=== PATIENT | male | born 1970 | race Caucasian/White ===

== ENCOUNTER 2017-03-28 09:53 | Observation (INO) ==
[2017-03-28] MEDS ORDERED: *HR* HYDROcodone/Acet 5/325 mg TABLET PO ONE (12:28)
--- NOTE | 2017-03-28 13:26 | Orthopedic History & Physical ---
Date of Encounter: 03/28/17 Time of Encounter: 09:00 Assessment and Plan (1) Uncontrolled diabetes mellitus Current visit: Yes Status: Acute Hospitalist has been consulted for management. The wounds will likely not heal until his glucose is better controlled. Qualifiers: Diabetes mellitus type: type 2 Qualified Code(s): E11.65 - Type 2 diabetes mellitus with hyperglycemia (2) Abscess of right hand Current visit: Yes Status: Acute Plan for right hand I&D today by Dr. Metzger. Discussed the procedure as well as r /b/a with the patient while in the office, all questions answered, consent obtained. Dry gauze dressings to right hand. NPO until surgery Will start ceftriaxone IV History of Present Illness Chief complaint: Right hand pain HPI: Mr. Dudley is a 46 year old male who I saw in [facility] office this am for postoperative follow up/wound check and was then sent to ER for admission. Initially he had a piece of metal puncture through the palm of his right hand 2 months ago. The wound was initially debrided at an outside hospital. He subsequently developed a superficial flexor tenosynovitis of the right long finger and underwent second I&D procedure. His infection persisted and was hospitalized at [place]. He then underwent a 3rd debridement on on 03/06/[address] Metzger. Cultures from that surgery grew proteus mirabilis. He has been on augmentin just finished 2 days ago. Incisions continue to have drainage and worsening redness, increased pain, stiffness and numbness to hand. Denies any chest pain, SOB, fevers at this time. Patient does have uncontrolled diabetes with glucose levels running 500-700 range. Past Med Surg Social Fam HX - Past Medical History Medical history: diabetes, hypertension, myocardial infarction Psychiatric history: no psych history - Past Surgical History Surgical History: orthopedic, other - Social History Smoking Status: Current every day smoker Packs per day: 0.25 Smokeless Tobacco Status: No Alcohol use: none Drug use: none - Family History Mother History Unknown: Yes Brother Hx Family Cardiac Disorders: Yes (HTN) Medications and Allergies Metoprolol [Lopressor] 25 mg PO DAILY 04/25/16 [History] Insulin DETEMIR [Levemir] 25 unit SQ HS 12/02/16 [History] Gabapentin [Neurontin] 800 mg PO QID 01/10/17 [History] Insulin ASPART [NovoLOG] 0 unit SQ TID PRN 03/28/17 [History] 3 Allergy/AdvReac Type Severity Reaction Status Date / Time No Known Allergies Allergy Verified 03/28/17 13:53 All Systems Reviewed: A 10-system review of systems was performed and is negative for pertinent findings except as documented above in the HPI. - Constitutional Constitutional: as per HPI - Cardiovascular Cardiovascular: as per HPI - Respiratory Respiratory: as per HPI - Musculoskeletal Musculoskeletal: as per HPI Physical Exam - Constitutional Vitals: Temp Pulse Resp BP Pulse Ox 97.4 F L 86 16 146/89 98 03/28/17 11:33 03/28/17 11:33 03/28/17 11:33 03/28/17 11:33 03/28/17 11:33 - Wrist & Hand right Location of pain: palmar hand (Continued open incision to palm and volar 3rd MCP flexion crease with purulent drainage and surrounding erythema and swelling. Significant tenderness to palpation, restricted motion of all digits and MCPJ. brisk cap refill, NV intact) Results - Labs Result Diagrams: 03/28/17 15:40 03/28/17 15:40 Labs: Abnormal lab results POC Glucose 594 (58-89) H* 03/28/17 11:37 All other labs normal. - Attending Attestation Case and plan of care discussed with supervising physician who was available for all aspects of care.
[2017-03-28] MEDS ORDERED: *HR* OxyCODONE/APAP 5/325 TABLET PO PRN ×2 (13:38→20:42)
[2017-03-28] MEDS ORDERED: cefTRIAXone 2,000 MG in Water for inj. (sterile) 20 ML IVP SCH (14:00)
[2017-03-28] MEDS ORDERED: *HR* Dextrose 50 % in Water (Syg) 50 ML SYRINGE IVP PRN (15:23)
[2017-03-28] MEDS ORDERED: D5% in Water 1,000 ML IVC PRN (15:23)
[2017-03-28] MEDS ORDERED: Dextrose Gel 15 GM/37.5 ML TUBE PO PRN ×2 (15:23)
--- NOTE | 2017-03-28 15:31 | Internal Medicine Consult Note ---
Date of Encounter: 03/28/17 Time of Encounter: 14:30 - Assessment and Plan (1) Abscess of right hand Current Visit: Yes Status: Acute Assessment and plan: concerned for tenosynovitis Scheduled for I & D today by Dr. Metzger Reviewed wound cx from past showed Proteus - susceeptible to Rocephin will cont Rocephin.. also add Vancomycin.. until we get further wound cx results now check ESR, CRP, CBC, BMP , PT and INR I wanted to thank Dr. Metzger for allowing us to participate in your pt's care (2) Non-healing surgical wound Current Visit: Yes Status: Acute Qualifiers: Qualified Code(s): T81.89XA - Other complications of procedures, not elsewhere classified, initial encounter (3) Uncontrolled diabetes mellitus Current Visit: Yes Status: Acute Assessment and plan: will check Hb A1C Will start him on ISS medium + Levemir 25 U QHS Qualifiers: Diabetes mellitus type: type 2 Qualified Code(s): E11.65 - Type 2 diabetes mellitus with hyperglycemia (4) HTN (hypertension) Current Visit: Yes Status: Acute Assessment and plan: resumed home med Metoprolol Qualifiers: Hypertension type: essential hypertension Qualified Code(s): I10 - Essential (primary) hypertension (5) CAD (coronary artery disease) Current Visit: Yes Status: Chronic Assessment and plan: s/p CABG and PCI cont home med ASA + Metoprolol he is not on any statins will check Lipid panel in am Qualifiers: Coronary Disease-Associated Artery/Lesion type: [place] artery Qualified Code(s): I25.10 - Atherosclerotic heart disease of [place] coronary artery without angina pectoris Internal Medicine - CN: HPI - Data of Consult Patient: new to practice Requesting Physician: Konrad Metzger MD - Consult Narrative History of present illness: Mr. Dudley is a 46 year old male with known PMH of DM2, HTN, CAD s/p PCI and CABG x 3 vessel , who has punctured wound with metal in Rt hand 3 months ago, which initially debrided a another hospital. He subsequently developed superficial flexor tenosynoivtis of Rt long finger and underwent second I & D at [place]. His wound still not healing well, so he did go for 3rd I & D of Rt hand by Ortho / Hand Surgeon Dr. Metzger on 03/06/17. His wound cx grew Proteus at that time and he was placed on Augmentin abx. However his hand wound still looks infected with purulent drainage and erythema through the incisions. We were asked to manage his DM and HTN. He denied any CP / SOB. Since he is not feeling well from last couple of days, he did not insulin as scheduled. Past Med Surg Social Fam HX - Past Medical History Medical history: diabetes, hypertension, myocardial infarction Psychiatric history: no psych history - Past Surgical History Surgical History: coronary bypass (CABG), orthopedic, other - Social History Smoking Status: Current every day smoker Packs per day: 0.25 Smokeless Tobacco Status: No Alcohol use: none Drug use: none - Family History Mother History Unknown: Yes Brother Hx Family Cardiac Disorders: Yes (HTN) Review of systems: All the systems are reviewed everything is benign except the systems and symptoms I mentioned in the history of present illness Internal Medicine - CN: Meds Metoprolol [Lopressor] 25 mg PO DAILY 04/25/16 [History] Insulin DETEMIR [Levemir] 25 unit SQ HS 12/02/16 [History] Gabapentin [Neurontin] 800 mg PO QID 01/10/17 [History] Insulin ASPART [NovoLOG] 0 unit SQ TID PRN 03/28/17 [History] 3 Allergy/AdvReac Type Severity Reaction Status Date / Time No Known Allergies Allergy Verified 03/28/17 13:53 Internal Medicine - CN: Exam - Constitutional Vitals: Temp Pulse Resp BP Pulse Ox 98.4 F 88 15 129/81 96 03/28/17 15:13 03/28/17 15:13 03/28/17 15:13 03/28/17 15:13 03/28/17 15:13 General appearance IM: Present: A&O X 3, no acute distress, answers questions appropriately - Head Head exam: Present: atraumatic, normal inspection - Neck Neck exam general surgery: Present: full ROM, supple. Absent: lymphadenopathy, tenderness - Respiratory Respiratory exam: Present: decreased breath sounds. Absent: rales, respiratory distress, rhonchi, wheezes - Cardiovascular Cardiovascular exam IM: Present: RRR, +S1, +S2. Absent: systolic murmur, tachycardia - GI/Abdominal GI/Abdominal exam IM: Present: normal bowel sounds, soft. Absent: rebound, rigid, tenderness - Extremities Exam Extremities exam IM: Absent: calf tenderness, pedal edema, tenderness Additional comments: abscess, purulent drainage and erythema noticed over Rt hand plantar incision area. swollen fingers noticed over Rt hand - Back Exam Back exam: Absent: CVA tenderness (L), CVA tenderness (R) - Neurological Exam Neurological exam: Present: alert, oriented X3 - Psychiatric Psychiatric exam: Present: normal affect, normal mood - Skin Skin exam IM: Absent: rash Consult Discharge Plan - Plan Referrals: NONE,PCP [Primary Care Provider] -
[2017-03-28 15:56] LABS: INR 1.1; Prothrombin Time 11.5 Seconds (9.4-12.1)
[2017-03-28] MEDS ORDERED: Vancomycin 1,250 MG in D5% in Water 250 ML IVPB SCH (16:00)
[2017-03-28 16:06] LABS: Basophils # 0.2 K/mcL (0.0-0.2); Basophils % 1.4 %; Eosinophils # 0.3 K/mcL (0.0-0.6); Eosinophils % 2.8 %; Hematocrit 45.3 % (37.5-50.1); Hemoglobin 16.7 g/dL (12.9-16.9); Immature Granulocytes % 2.5 % (0-4); Lymphocytes # 2.5 K/mcL (0.6-4.6); Lymphocytes % 21.8 %; Mean Corpuscular HGB Conc 36.9 g/dL (31.6-35.5); Mean Corpuscular Hemoglobin 32.1 pg (28.0-33.3); Mean Corpuscular Volume 86.9 fL (83.0-100.0); Mean Platelet Volume 9.7 fL (9.4-12.4); Monocytes % 8.8 %; Neutrophils # 7.1 K/mcL (1.6-8.9); Platelet Count 232 K/mcL (140-400); Red Blood Count 5.21 M/mcL (4.19-5.50); Red Cell Distribution Width 12.7 % (11.5-14.5); Segmented Neutrophils % 62.7 %
[2017-03-28 16:18] LABS: BUN/Creatinine Ratio 13 (6-26); Blood Urea Nitrogen 9 mg/dL (6-20); C-Reactive Protein 58 mg/L (Less than 10); Carbon Dioxide 33 mEq/L (23-29); Chloride 91 mEq/L (98-107); Glucose 361 mg/dL (70-105); Osmolality,Calculated 287 (280-300); Potassium 3.2 mEq/L (3.5-5.1); Sodium 132 mEq/L (136-145); eGFR For African Americans > 60 (> 60); eGFR For Non-African Americans > 60 (> 60)
[2017-03-28] MEDS: Gabapentin 400 MG CAPSULE PO SCH ×2 (16:24→20:21)
[2017-03-28] MEDS ORDERED: Insulin LISPRO 300 UNITS/3 ML VIAL SQ SCH ×2 (16:30→21:00)
--- NOTE | 2017-03-28 16:45 | Anesthesia Evaluation PreOp ---
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 Other Medical History: Diabetes Type II (insulin-dependent diabetes mellitus - poorly controlled) Anesthesia History: No Prior Anesthetic Complications Alcohol Use: none Drug use: none Medications and Allergies Metoprolol [Lopressor] 25 mg PO DAILY 04/25/16 [History] Insulin DETEMIR [Levemir] 25 unit SQ HS 12/02/16 [History] Gabapentin [Neurontin] 800 mg PO QID 01/10/17 [History] Insulin ASPART [NovoLOG] 0 unit SQ TID PRN 03/28/17 [History] 3 Allergy/AdvReac Type Severity Reaction Status Date / Time No Known Allergies Allergy Verified 03/28/17 13:53 - Meds/Allergy Pre-op Review Medications Reviewed: Yes Allergies Reviewed: Yes Beta Blockers on Current Med List: Yes If Beta Blockers taken, Date/Time (Last Dose taken): 03-28-17 metoprolol 6 am Anesthesia Results - Labs 03/28/17 15:40 03/28/17 15:40 - Imaging EKG: report reviewed, image reviewed (SINUS RHYTHM POSSIBLE LEFT ATRIAL ENLARGEMENT) Anesthesia Exam Last Vital Signs Temp 98.4 F 03/28/17 15:13 Pulse 88 03/28/17 15:13 Resp 15 03/28/17 15:13 BP 129/81 03/28/17 15:13 Pulse Ox 96 03/28/17 15:13 Weight: 85 kg NPO (# of Hours): > 8 hrs - HEENT Pupil (Motor): Pupils equal, EOMI Mallampati: II Teeth: Edentulous Oral Opening: Greater than 3 - DOOR FURRING INSTALLER LOC: Oriented DOOR FURRING INSTALLER Motor: Normal RUE, Normal LUE, Normal RLE, Normal LLE, Normal Face - Cardiac Rhythm: Regular Murmur: None - Pulmonary Breath Sounds: bilateral Clear Respiratory Effort: Symmetrical Anesthesia Assess/Plan ASA Score: 3 Modified Melania Scale for Level of Consciousness: Cooperative, oriented, and tranquil Anesthetic Plan: General Monitoring Plan: Standard Monitors Recovery Plan: PACU
[2017-03-28] MEDS ORDERED: Ondansetron 4 MG/2 ML VIAL ONE (16:50)
[2017-03-28] MEDS ORDERED: *HR* Propofol 200 MG/20 ML VIAL IVP ONE (16:50)
[2017-03-28] MEDS ORDERED: *HR* FentaNYL (PF) 100 MCG/2 ML VIAL ONE (16:50)
[2017-03-28] MEDS ORDERED: *HR* Midazolam HCl 2 MG/2 ML VIAL ONE (16:50)
[2017-03-28] MEDS ORDERED: Lidocaine -MPF 2% 2 ML VIAL ONE (16:50)
[2017-03-28] MEDS ORDERED: Dexamethasone 4 MG/ML VIAL ONE (16:50)
[2017-03-28] MEDS ORDERED: Ondansetron 4 MG/2 ML VIAL IVP ONE (17:31)
[2017-03-28] MEDS ORDERED: Albuterol 2.5 MG/3 ML NEBULIZER IH ONE (17:31)
[2017-03-28] MEDS ORDERED: Naloxone 0.4 MG/ML INJ IVP PRN (17:31)
[2017-03-28] MEDS ORDERED: *HR* Labetalol 20 MG/4 ML SYRINGE IVP PRN (17:31)
[2017-03-28] MEDS ORDERED: *HR* HYDROmorphone 2 MG/ML SYRINGE ONE (17:39)
[2017-03-28] MEDS ORDERED: Ringers Solution, Lactated 1,000 ML IVC SCH (17:45)
[2017-03-28] MEDS: *HR* HYDROmorphone (PF) 1 MG/ML SYRINGE IVP PRN ×4 (18:28→18:50)
--- NOTE | 2017-03-28 18:56 | Anesthesia Evaluation Post Op ---
Date of Encounter: 03/28/17 Time of Encounter: 18:55 - Vital Signs Vital Signs: Last Vital Signs Temp 97.5 F L 03/28/17 18:41 Pulse 93 03/28/17 18:41 Resp 14 03/28/17 18:41 BP 158/91 03/28/17 18:41 Pulse Ox 97 03/28/17 18:41 - Lungs Lungs: Clear Ascult./Percussion - Airway Airway: Non-obstructed - Cardiovascular Regular Rate - Mental Status Mental Status: Alert & Oriented, Answers Appropriately - Pain Pain Scale: 4 - Nausea Vomiting Nausea Vomiting: Not Present - Hydration Hydration: NPO - Discharge PostOp Status: Transfer Patient to floor
--- NOTE | 2017-03-28 19:25 | Operative Note ---
Date of procedure: 03/28/17 Pre-op diagnosis: Right hand palmar abscess and long finger flexor tendon sheath abscess Post-op diagnosis: other (Right hand palmar abscess and long finger flexor tendon sheath abscess. Partial rupture of the long finger FDS tendon) Procedure: Right hand incision and drainage of long finger flexor tendon sheath abscess extending to carpal tunnel Right hand excision of partial ruptured flexor digitorum was shells tendon of the long finger Anesthesia: GETA Surgeon: Konrad Metzger Was there an employment assistant present: No Estimated blood loss (cc): 10 Tourniquet Time (Minutes): 11 Specimen: Sent to pathology and microbiology Condition: stable Disposition: PACU Procedure in Detail: Indications: Patient is a 46-year-old gentleman whose head multiple incision and drainages of his right hand including long finger flexor tendon sheath. The patient was last operated on by myself 3 weeks ago. He presented in the office today with recurrence of infection. His diabetes still remains very uncontrolled. He was admitted today for repeat incision and drainage, IV antibiotics, and management of his diabetes. Procedure: The patient was brought into the operating room and placed on the OR table in supine position with the affected extremity on a hand table. A sign in was performed. The patient underwent monitored anesthesia care. A tourniquet was placed on the right arm close to the axilla. The patient underwent general anesthesia. The extremity was then prepped and draped in usual sterile fashion. A timeout was performed. The patient had pus draining from the partially open woundin the mid palm of the hand. Also pus draining from distal and open carpal tunnel incision. Also in the wound with draining pus at the long finger MP flexion crease. The skin at the distal palm of this long finger with very red and angry appearing. The draining wound bluntly spread the hemostat, the purulent fluid expressed was cultured for aerobic and anaerobic. The patient was then given 2 g of Ancef intravenously. The wounds were copiously with normal saline. The right upper extremity was elevated, exsanguinated with an Tariq wrap, and the tourniquet was raised to pressure of 250 mmHg. The mid palm incision was extended proximally in line with the first webspace. I sharply incised through the deep palmar fascia. The carpal tunnel was also reopened. The deep arch was noted once again, which appeared somewhat sclerosed. Also made a 1.5 cm oblique incision across the right long finger MP flexion crease where it was open already with pus draining. The wound will cultured with normal saline and sharp debridement of any granulation and infected tissue. Going into the carpal tunnel, the flexor tendons were bluntly spread and irrigated. Coming the distal palmar wound, aspirated and irrigated until the flexor tendons with A1 amanda was previously released. On exploration under the long finger MP flexion crease, the distal end of the A2 amanda was missing and there appeared to be necrotic tendon. The tendon was pulled on and was partially ruptured, at least 90% flexion. This was a flexor digitorum shows tendon. This infected necrotic tendon was excised the flexor digitorum profundus tendon was completely intact. Using a 14-gauge Angiocath, I irrigated out under the flexor tendon sheath well. The tourniquet was inflated and continued to irrigate the wound out copiously with normal saline. Hemostasis obtained with bipolar cautery. The skin incisions were closed with 4 nylon mattress and simple sutures. A 1 cm opening was left in the distal palm and also mid palm, and also at the MP flexion crease. Both open areas were packed with iodoform packing. The patient was injected with a total of 10 mL of 0.5% Marcaine. Sterile dressings were applied. The patient was extubated and taken to the recovery room in stable condition.
--- NOTE | 2017-03-28 19:47 | Discharge Summary ---
<Konrad Metzger - Last Filed: 03/28/17 19:45> Date of Encounter: 03/28/17 Time of Encounter: 19:45 - Discharge Diagnosis (1) Abscess of right hand Status: Acute - Discharge Medications Prescriptions: cephALEXin [Keflex] 500 mg PO QID #40 capsule OxyCODONE/APAP 5/325 [Percocet 5/325 MG] 1 each PO Q6HR PRN #28 tablet PRN Reason: Pain OxyCODONE/APAP 5/325 [Percocet 5/325 MG] 1 each PO Q6HR PRN #28 tablet PRN Reason: Pain Home Medications: Metoprolol [Lopressor] 25 mg PO DAILY 04/25/16 [History] Insulin DETEMIR [Levemir] 25 unit SQ HS 12/02/16 [History] Gabapentin [Neurontin] 800 mg PO QID 01/10/17 [History] Insulin ASPART [NovoLOG] 0 unit SQ TID PRN 03/28/17 [History] OxyCODONE/APAP 5/325 [Percocet 5/325 MG] 1 each PO Q6HR PRN #28 tablet 03/28/17 [Rx] OxyCODONE/APAP 5/325 [Percocet 5/325 MG] 1 each PO Q6HR PRN #28 tablet 03/28/17 [Rx] cephALEXin [Keflex] 500 mg PO QID #40 capsule 03/30/17 [Rx] Allergies/Adverse Reactions: 3 Allergy/AdvReac Type Severity Reaction Status Date / Time No Known Allergies Allergy Verified 03/28/17 13:53 Labs on day of discharge: Labs from last 24 hours 03/28/17 03/28/17 03/28/17 15:40 15:40 15:40 WBC RBC Hgb Hct MCV MCH MCHC RDW Plt Count MPV Immature Gran % Seg Neutrophils % Lymphocytes % Monocytes % Eosinophils % Basophils % Neutrophils # Lymphocytes # Monocytes # Eosinophils # Basophils # ESR PT 11.5 INR 1.1 Sodium 132 L Potassium 3.2 L Chloride 91 L Carbon Dioxide 33 H BUN 9 Creatinine 0.72 Est GFR ( Amer) > 60 Est GFR (Non-Af Amer) > 60 BUN/Creatinine Ratio 13 Glucose 361 H POC Glucose Est Mean Plasma Glucose 298 Hemoglobin A1c 12.0 H Calculated Osmolality 287 Calcium 10.0 Magnesium 2.0 C-Reactive Protein 58 H 03/28/17 03/28/17 03/28/17 15:40 15:40 15:21 WBC 11.3 H RBC 5.21 Hgb 16.7 Hct 45.3 MCV 86.9 MCH 32.1 MCHC 36.9 H RDW 12.7 Plt Count 232 MPV 9.7 Immature Gran % 2.5 Seg Neutrophils % 62.7 Lymphocytes % 21.8 Monocytes % 8.8 Eosinophils % 2.8 Basophils % 1.4 Neutrophils # 7.1 Lymphocytes # 2.5 Monocytes # 1.0 Eosinophils # 0.3 Basophils # 0.2 ESR 74 H PT INR Sodium Potassium Chloride Carbon Dioxide BUN Creatinine Est GFR ( Amer) Est GFR (Non-Af Amer) BUN/Creatinine Ratio Glucose POC Glucose 353 H Est Mean Plasma Glucose Hemoglobin A1c Calculated Osmolality Calcium Magnesium C-Reactive Protein 03/28/17 03/28/17 11:37 11:34 WBC RBC Hgb Hct MCV MCH MCHC RDW Plt Count MPV Immature Gran % Seg Neutrophils % Lymphocytes % Monocytes % Eosinophils % Basophils % Neutrophils # Lymphocytes # Monocytes # Eosinophils # Basophils # ESR PT INR Sodium Potassium Chloride Carbon Dioxide BUN Creatinine Est GFR ( Amer) Est GFR (Non-Af Amer) BUN/Creatinine Ratio Glucose POC Glucose 594 H* 509 H* Est Mean Plasma Glucose Hemoglobin A1c Calculated Osmolality Calcium Magnesium C-Reactive Protein Date of admission: 03/28/17 11:09 Primary care physician: PCP NONE Consults: 03/28/17 12:35 Consult to Hospitalist [CONS] Stat Consulting Provider: Hospitalist Bhavna Reason for Consult: uncontrolled DM; preop (OR 03/28/17) - call completed from office per Guido Moe Call Completed: Yes 03/28/17 14:29 Consult to Invasive Line Access Team [CONS] Routine Reason for Consult: long-term IVAB Line Type: EPIV Anticipated date of discharge: 03/30/17 - Patient Status Disposition: Home, Self-Care Condition: Good Functional capacity at discharge: independent ambulation Overall status at discharge: patient is progressing back to baseline - Discharge Instructions Follow Up With: NONE,PCP [Primary Care Provider] - - Hospital Course Hospital course: Mr. Dudley is a 46 year old male - Time Spent with Patient Total time spent providing and/or coordinating discharge services: <Tadeo Martin - Last Filed: 03/31/17 07:12> Date of Encounter: 03/31/17 Labs on day of discharge: Labs from last 24 hours 03/31/17 03/31/17 03/31/17 02:55 02:55 02:55 WBC 7.3 RBC 4.14 L Hgb 13.2 D Hct 37.5 MCV 90.6 MCH 31.9 MCHC 35.2 RDW 12.7 Plt Count 209 MPV 9.5 Immature Gran % 2.3 Seg Neutrophils % 58.3 Lymphocytes % 25.8 Monocytes % 9.7 Eosinophils % 2.7 Basophils % 1.2 Neutrophils # 4.2 Lymphocytes # 1.9 Monocytes # 0.7 Eosinophils # 0.2 Basophils # 0.1 ESR 46 H Sodium 136 Potassium 3.2 L Chloride 98 Carbon Dioxide 32 H BUN 7 Creatinine 0.69 L Est GFR ( Amer) > 60 Est GFR (Non-Af Amer) > 60 BUN/Creatinine Ratio 10 Glucose 348 H POC Glucose Calculated Osmolality 294 Calcium 8.7 Magnesium 1.8 C-Reactive Protein 25 H 03/30/17 03/30/17 03/30/17 22:12 17:08 15:52 WBC RBC Hgb Hct MCV MCH MCHC RDW Plt Count MPV Immature Gran % Seg Neutrophils % Lymphocytes % Monocytes % Eosinophils % Basophils % Neutrophils # Lymphocytes # Monocytes # Eosinophils # Basophils # ESR Sodium Potassium Chloride Carbon Dioxide BUN Creatinine Est GFR ( Amer) Est GFR (Non-Af Amer) BUN/Creatinine Ratio Glucose POC Glucose 173 H 107 H 119 H Calculated Osmolality Calcium Magnesium C-Reactive Protein 03/30/17 11:41 WBC RBC Hgb Hct MCV MCH MCHC RDW Plt Count MPV Immature Gran % Seg Neutrophils % Lymphocytes % Monocytes % Eosinophils % Basophils % Neutrophils # Lymphocytes # Monocytes # Eosinophils # Basophils # ESR Sodium Potassium Chloride Carbon Dioxide BUN Creatinine Est GFR ( Amer) Est GFR (Non-Af Amer) BUN/Creatinine Ratio Glucose POC Glucose 277 H Calculated Osmolality Calcium Magnesium C-Reactive Protein Preliminary micro results at discharge 03/28/17 18:22 Anaerobic Culture - Preliminary Right Hand At this time, no anaerobic growth is present. The culture will be finalized after 5 days of incubation. Date of admission: 03/28/17 11:09 Primary care physician: PCP NONE Consults: 03/28/17 14:29 Consult to Invasive Line Access Team [CONS] Routine Reason for Consult: long-term IVAB Line Type: EPIV - Hospital Course Hospital course: Mr. Dudley is a 46 year old male - Time Spent with Patient Total time spent providing and/or coordinating discharge services:
[2017-03-28] MEDS: Vancomycin 1,250 MG in D5% in Water 250 ML IVPB SCH (20:01)
[2017-03-28] MEDS ORDERED: *HR* Morphine 2 MG/ML SYRINGE IVP PRN (20:41)
[2017-03-28] MEDS ORDERED: Insulin DETEMIR 100 UNIT/ML X5UNITS SQ SCH (21:00)
[2017-03-29 06:14] LABS: BUN/Creatinine Ratio 17 (6-26); Blood Urea Nitrogen 12 mg/dL (6-20); Calcium 9.4 mg/dL (8.6-10.3); Carbon Dioxide 29 mEq/L (23-29); Chloride 97 mEq/L (98-107); Chol/HDL Ratio 7.3 (0-4.9); Cholesterol 176 mg/dL (< 200); Glucose 313 mg/dL (70-105); HDL Cholesterol 24 mg/dL (40-59); LDL Cholesterol,Calculated 108 mg/dL (0-99); Osmolality,Calculated 292 (280-300); Potassium 3.7 mEq/L (3.5-5.1); Sodium 135 mEq/L (136-145); Triglycerides 221 mg/dL (< 150); eGFR For African Americans > 60 (> 60); eGFR For Non-African Americans > 60 (> 60)
[2017-03-29] MEDS: Vancomycin 1,250 MG in D5% in Water 250 ML IVPB SCH ×2 (06:53→18:32)
[2017-03-29] MEDS ORDERED: *HR* Labetalol 20 MG/4 ML SYRINGE IVP PRN (07:10)
[2017-03-29] MEDS ORDERED: Naloxone 0.4 MG/ML INJ IVP PRN (07:10)
[2017-03-29] MEDS ORDERED: *HR* Dextrose 50 % in Water (Syg) 50 ML SYRINGE IVP PRN (07:10)
[2017-03-29] MEDS ORDERED: D5% in Water 1,000 ML IVC PRN (07:10)
[2017-03-29] MEDS ORDERED: Ondansetron 4 MG/2 ML VIAL IVP ONE (07:10)
[2017-03-29] MEDS ORDERED: Dextrose Gel 15 GM/37.5 ML TUBE PO PRN ×2 (07:10)
[2017-03-29] MEDS ORDERED: *HR* HYDROmorphone (PF) 1 MG/ML SYRINGE IVP PRN (07:10)
[2017-03-29] MEDS: Insulin LISPRO 300 UNITS/3 ML VIAL SQ SCH ×3 (08:06→17:09)
[2017-03-29] MEDS: Gabapentin 400 MG CAPSULE PO SCH ×4 (08:06→22:05)
[2017-03-29] MEDS: Ringers Solution, Lactated 1,000 ML IVC SCH (08:07)
--- NOTE | 2017-03-29 08:08 | Orthopedics Progress Note ---
Date of Encounter: 03/29/17 Time of Encounter: 08:07 Subjective Interval history: Patient was seen this morning doing well without complaints. Afebrile vital signs stable. Operative extremity: Neurovascularly intact Dressing clean dry and intact Calves nontender Assessment and plan: Continue with postoperative care Cultures pending Objective Vital signs: Vital Signs Temp Pulse Resp BP Pulse Ox 03/29/17 06:55 98.5 F 97 16 134/83 99 03/29/17 04:14 98.3 F 95 18 139/87 97 03/28/17 23:35 98.4 F 100 17 135/64 94 03/28/17 20:45 98.2 F 100 16 133/87 96 03/28/17 20:33 96 03/28/17 20:15 98.2 F 96 16 133/87 94 03/28/17 19:25 99.0 F 96 16 135/90 95 03/28/17 19:01 98.2 F 90 14 142/87 96 03/28/17 18:51 92 14 145/92 95 03/28/17 18:41 97.5 F L 93 14 158/91 97 03/28/17 18:31 96 14 151/93 94 03/28/17 18:21 96 12 132/87 94 03/28/17 18:11 97.3 F L 99 16 117/82 96 03/28/17 15:13 98.4 F 88 15 129/81 96 03/28/17 11:33 97.4 F L 86 16 146/89 98 Intake and Output 03/28/17 03/29/17 03/29/17 23:59 07:59 15:59 Intake Total 850 / 850 Output Total Balance 840 / 840 Intake: IV Fluids 250 / 250 Vancocin 1,250 MG In Dextrose 5 250 / 250 % 250 ML @ 166.67 mls/hr IVPB Q12H [facility] Rx#:[id number] Oral 600 / 600 Output: Urine 0 / 0 Estimated Blood Loss Other: # Voids 2 Blood Glucose* 356 319 - Labs CBC & BMP: 03/28/17 15:40 03/29/17 05:45 Labs: Abnormal lab results WBC 11.3 K/mcL (4.3-11.1) H 03/28/17 15:40 MCHC 36.9 g/dL (31.6-35.5) H 03/28/17 15:40 ESR 74 mm/hr (0-10) H 03/28/17 15:40 Sodium 135 mEq/L (136-145) L 03/29/17 05:45 Chloride 97 mEq/L (98-107) L 03/29/17 05:45 Glucose 313 mg/dL (70-105) H 03/29/17 05:45 POC Glucose 356 (58-89) H 03/28/17 20:44 Hemoglobin A1c 12.0 % (-5.6) H 03/28/17 15:40 C-Reactive Protein 58 mg/L (Less than 10) H 03/28/17 15:40 Triglycerides 221 mg/dL (< 150) H 03/29/17 05:45 LDL Cholesterol, Calc 108 mg/dL (0-99) H 03/29/17 05:45 VLDL Cholesterol, Calc 44 mg/dL (< 31) H 03/29/17 05:45 HDL Cholesterol 24 mg/dL (40-59) L 03/29/17 05:45 Cholesterol/HDL Ratio 7.3 (0-4.9) H 03/29/17 05:45 - VTE Documentation of Mechanical Device: Intermittent pneumatic compression device Consult Discharge Plan - Plan Referrals: NONE,PCP [Primary Care Provider] - Prescriptions: OxyCODONE/APAP 5/325 [Percocet 5/325 MG] 1 each PO Q6HR PRN #28 tablet PRN Reason: Pain OxyCODONE/APAP 5/325 [Percocet 5/325 MG] 1 each PO Q6HR PRN #28 tablet PRN Reason: Pain
[2017-03-29] MEDS: *HR* OxyCODONE/APAP 5/325 TABLET PO PRN ×2 (11:19→19:47)
[2017-03-29] MEDS: *HR* Morphine 2 MG/ML SYRINGE IVP PRN ×3 (13:06→22:10)
[2017-03-29] MEDS: cefTRIAXone 2,000 MG in Water for inj. (sterile) 20 ML 20 ML IVP SCH (13:07)
--- NOTE | 2017-03-29 15:10 | Internal Med Progress Note ---
Date of Encounter: 03/29/17 Time of Encounter: 14:50 - Assessment and plan (1) Abscess of right hand Current Visit: Yes Status: Acute Assessment and plan: s/p Right hand incision and drainage of long finger flexor tendon sheath abscess extending to carpal tunnel s/p Right hand excision of partial ruptured flexor digitorum was shells tendon of the long finger POD # 1 Ortho following Wound cx still pending EPV line placed in Cont Rocephin + Vancomycin May need to go home on IV Abx for at least 2 weeks, since he has recurrent infection will talk to Ortho about this (2) Non-healing surgical wound Current Visit: Yes Status: Acute Qualifiers: Qualified Code(s): T81.89XA - Other complications of procedures, not elsewhere classified, initial encounter (3) Uncontrolled diabetes mellitus Current Visit: Yes Status: Acute Assessment and plan: HbA1C 12 His BS are still not well controlled Changed his Levemir to 30 U BID also inc ISS to high He does need to go home on ISS Qualifiers: Diabetes mellitus type: type 2 Qualified Code(s): E11.65 - Type 2 diabetes mellitus with hyperglycemia (4) HTN (hypertension) Current Visit: Yes Status: Acute Assessment and plan: stable with home med Metoprolol Qualifiers: Hypertension type: essential hypertension Qualified Code(s): I10 - Essential (primary) hypertension (5) CAD (coronary artery disease) Current Visit: Yes Status: Chronic Assessment and plan: s/p CABG and PCI cont home med ASA + Metoprolol His LDL -108, HDL -24 will start him on Lipitor 20mg QHS Qualifiers: Coronary Disease-Associated Artery/Lesion type: [place] artery Qualified Code(s): I25.10 - Atherosclerotic heart disease of [place] coronary artery without angina pectoris - Subjective Interval history: Mr. Dudley is a 46 year old male with known PMH of DM2, HTN, CAD s/p PCI and CABG x 3 vessel , who has punctured wound with metal in Rt hand 3 months ago, which initially debrided a another hospital. He subsequently developed superficial flexor tenosynoivtis of Rt long finger and underwent second I & D at [place]. His wound still not healing well, so he did go for 3rd I & D of Rt hand by Ortho / Hand Surgeon Dr. Metzger on 03/06/17. His wound cx grew Proteus at that time and he was placed on Augmentin abx. However his hand wound still looks infected with purulent drainage and erythema through the incisions. He did go to OR 03/28/17. He denied any CP / SOB. Denied any fever / chills. Tolerating PO intake well. - Constitutional Vitals: Temp Pulse Resp BP Pulse Ox 97.8 F 100 16 140/77 99 03/29/17 11:25 03/29/17 11:25 03/29/17 11:25 03/29/17 11:25 03/29/17 11:25 General appearance: Present: A&O X 3, no acute distress, answers questions appropriately - Head Head exam: Present: atraumatic, normal inspection - Neck Neck exam general surgery: Present: supple - Respiratory Respiratory exam: Present: decreased breath sounds, wheezes. Absent: rales, respiratory distress, rhonchi - Cardiovascular Cardiovascular exam: Present: RRR, +S1, +S2. Absent: diastolic murmur, gallop, rubs, systolic murmur - GI/Abdominal GI/Abdominal exam: Present: normal bowel sounds, soft. Absent: rebound, rigid, tenderness - Extremities Exam Extremities exam: Absent: calf tenderness, pedal edema, tenderness Additional comments: improving swelling in Rt hand.. dressing placed on...able to move his Rt hand fingers - Back Exam Back exam: Absent: CVA tenderness (L), CVA tenderness (R) - Neurological Exam Neurological exam: Present: alert, oriented X3 - Psychiatric Psychiatric exam: Present: normal affect, normal mood Internal Medicine: Result - Labs CBC & Chem 7: 03/28/17 15:40 03/29/17 05:45 Labs: Short CBC 03/28/17 Range/Units 15:40 WBC 11.3 H (4.3-11.1) K/mcL Hgb 16.7 (12.9-16.9) g/dL Hct 45.3 (37.5-50.1) % Plt Count 232 (140-400) K/mcL Neutrophils # 7.1 (1.6-8.9) K/mcL BMP 03/28/17 03/29/17 15:40 05:45 Sodium 132 L 135 L Potassium 3.2 L 3.7 Chloride 91 L 97 L Carbon Dioxide 33 H 29 BUN 9 12 Creatinine 0.72 0.70 Glucose 361 H 313 H Calcium 10.0 9.4 - ABG Interpretation ABG results: PT/INR, D-dimer PT 11.5 Seconds (9.4-12.1) 03/28/17 15:40 - VTE Documentation of Mechanical Device: Intermittent pneumatic compression device Consult Discharge Plan - Plan Referrals: NONE,PCP [Primary Care Provider] - Prescriptions: OxyCODONE/APAP 5/325 [Percocet 5/325 MG] 1 each PO Q6HR PRN #28 tablet PRN Reason: Pain OxyCODONE/APAP 5/325 [Percocet 5/325 MG] 1 each PO Q6HR PRN #28 tablet PRN Reason: Pain
[2017-03-29] MEDS ORDERED: Insulin DETEMIR 100 UNIT/ML X5UNITS SQ SCH (21:00)
[2017-03-29] MEDS ORDERED: Insulin LISPRO 300 UNITS/3 ML VIAL SQ SCH ×2 (21:00)
[2017-03-29] MEDS: Insulin DETEMIR 100 UNIT/ML X5UNITS SQ SCH (22:05)
[2017-03-30] MEDS: *HR* OxyCODONE/APAP 5/325 TABLET PO PRN ×3 (01:17→10:53)
--- NOTE | 2017-03-30 07:46 | Orthopedics Progress Note ---
Date of Encounter: 03/30/17 Time of Encounter: 07:45 Subjective Interval history: Patient was seen this morning doing well without complaints. Afebrile vital signs stable. Operative extremity: Neurovascularly intact Dressing clean dry and intact Calves nontender Assessment and plan: Continue with postoperative care Cultures no growth to date, recommendation is for patient to remain in the hospital until cultures are finalized. If patient refuses to stay will be discharged on Keflex which his previous culture sensitive to and since he did not respond well to the amoxicillin. Patient will also be given a follow-up for Friday. Objective Vital signs: Vital Signs Temp Pulse Resp BP Pulse Ox 03/30/17 06:53 98.0 F 85 16 123/71 100 03/30/17 00:25 97.8 F 83 14 125/74 98 03/29/17 20:02 98.0 F 89 14 134/80 98 03/29/17 17:05 97.9 F 89 16 114/70 96 03/29/17 11:25 97.8 F 100 16 140/77 99 Intake and Output 03/29/17 03/29/17 03/30/17 15:59 23:59 07:59 Intake Total 610 / 610 1490 / 1490 Balance 20 610 / 610 1490 / 1490 Intake: IV Fluids 250 / 250 Rocephin 2,000 MG In Water for inj. (sterile) 20 ML @ 600 mls/ hr IVP Q24H [facility] Rx#:[id number] Vancocin 1,250 MG In Dextrose 5 250 / 250 % 250 ML @ 166.67 mls/hr IVPB Q12H [facility] Rx#:[id number] Oral 360 / 360 1490 / 1490 Other: # Voids 6 Blood Glucose* 349 279 - Labs CBC & BMP: 03/28/17 15:40 03/29/17 05:45 Labs: Abnormal lab results WBC 11.3 K/mcL (4.3-11.1) H 03/28/17 15:40 MCHC 36.9 g/dL (31.6-35.5) H 03/28/17 15:40 ESR 74 mm/hr (0-10) H 03/28/17 15:40 Sodium 135 mEq/L (136-145) L 03/29/17 05:45 Chloride 97 mEq/L (98-107) L 03/29/17 05:45 Glucose 313 mg/dL (70-105) H 03/29/17 05:45 POC Glucose 349 (58-89) H 03/29/17 20:47 Hemoglobin A1c 12.0 % (-5.6) H 03/28/17 15:40 C-Reactive Protein 58 mg/L (Less than 10) H 03/28/17 15:40 Triglycerides 221 mg/dL (< 150) H 03/29/17 05:45 LDL Cholesterol, Calc 108 mg/dL (0-99) H 03/29/17 05:45 VLDL Cholesterol, Calc 44 mg/dL (< 31) H 03/29/17 05:45 HDL Cholesterol 24 mg/dL (40-59) L 03/29/17 05:45 Cholesterol/HDL Ratio 7.3 (0-4.9) H 03/29/17 05:45 Vancomycin Trough 8.3 mcg/mL (10-20) L 03/30/17 06:05 - VTE Documentation of Mechanical Device: Intermittent pneumatic compression device Consult Discharge Plan - Plan Referrals: NONE,PCP [Primary Care Provider] - Prescriptions: cephALEXin [Keflex] 500 mg PO QID #40 capsule OxyCODONE/APAP 5/325 [Percocet 5/325 MG] 1 each PO Q6HR PRN #28 tablet PRN Reason: Pain OxyCODONE/APAP 5/325 [Percocet 5/325 MG] 1 each PO Q6HR PRN #28 tablet PRN Reason: Pain
[2017-03-30] MEDS: Ringers Solution, Lactated 1,000 ML IVC SCH (08:41)
[2017-03-30] MEDS: Insulin DETEMIR 100 UNIT/ML X5UNITS SQ SCH ×2 (08:49→22:21)
[2017-03-30] MEDS: Insulin LISPRO 300 UNITS/3 ML VIAL SQ SCH ×3 (08:49→17:10)
[2017-03-30] MEDS: Vancomycin 1,250 MG in D5% in Water 250 ML IVPB SCH (08:51)
[2017-03-30] MEDS: Gabapentin 400 MG CAPSULE PO SCH ×4 (08:51→20:57)
[2017-03-30] MEDS: *HR* Morphine 2 MG/ML SYRINGE IVP PRN ×3 (08:57→19:07)
[2017-03-30] MEDS ORDERED: Aminoglycoside Consult 1 EACH MC ONE (09:29)
[2017-03-30] MEDS: cefTRIAXone 2,000 MG in Water for inj. (sterile) 20 ML 20 ML IVP SCH (13:20)
[2017-03-30] MEDS ORDERED: Insulin Regular, Human 100 UNIT/ML SQ SCH ×2 (15:45→17:00)
--- NOTE | 2017-03-30 15:53 | Internal Med Progress Note ---
Date of Encounter: 03/30/17 Time of Encounter: 15:50 - Assessment and plan (1) Abscess of right hand Current Visit: Yes Status: Acute Assessment and plan: s/p Right hand incision and drainage of long finger flexor tendon sheath abscess extending to carpal tunnel s/p Right hand excision of partial ruptured flexor digitorum was shells tendon of the long finger POD # 1 Ortho following Wound cx still pending Cont Rocephin d/c Vancomycin Wound cx prelim report no growth however his Rt hand wound still looks very infected with all the purulent discharge may need another wash out...will talk to Ortho May need to go home on IV Abx for at least 2 weeks, since he has recurrent infection (2) Non-healing surgical wound Current Visit: Yes Status: Acute Qualifiers: Qualified Code(s): T81.89XA - Other complications of procedures, not elsewhere classified, initial encounter (3) Uncontrolled diabetes mellitus Current Visit: Yes Status: Acute Assessment and plan: HbA1C 12 His BS are still not well controlled Changed his Levemir to 40 U BID also cont ISS at medium and added Pre meal coverage with regular insulin 6 U TID Qualifiers: Diabetes mellitus type: type 2 Qualified Code(s): E11.65 - Type 2 diabetes mellitus with hyperglycemia (4) HTN (hypertension) Current Visit: Yes Status: Acute Assessment and plan: stable with home med Metoprolol Qualifiers: Hypertension type: essential hypertension Qualified Code(s): I10 - Essential (primary) hypertension (5) CAD (coronary artery disease) Current Visit: Yes Status: Chronic Assessment and plan: s/p CABG and PCI cont home med ASA + Metoprolol His LDL -108, HDL -24 will start him on Lipitor 20mg QHS Qualifiers: Coronary Disease-Associated Artery/Lesion type: [place] artery Qualified Code(s): I25.10 - Atherosclerotic heart disease of [place] coronary artery without angina pectoris - Subjective Interval history: Mr. Dudley is a 46 year old male with known PMH of DM2, HTN, CAD s/p PCI and CABG x 3 vessel , who has punctured wound with metal in Rt hand 3 months ago, which initially debrided a another hospital. He subsequently developed superficial flexor tenosynoivtis of Rt long finger and underwent second I & D at [place]. His wound still not healing well, so he did go for 3rd I & D of Rt hand by Ortho / Hand Surgeon Dr. Metzger on 03/06/17. His wound cx grew Proteus at that time and he was placed on Augmentin abx. However his hand wound still looks infected with purulent drainage and erythema through the incisions. He did go to OR 03/28/17. He denied any CP / SOB. Denied any fever / chills. Still in lot of pain Rt hand.. not well controlled with current pain meds - Constitutional Vitals: Temp Pulse Resp BP Pulse Ox 98.4 F 77 14 104/63 98 03/30/17 15:15 03/30/17 15:15 03/30/17 15:15 03/30/17 15:15 03/30/17 15:15 General appearance: Present: A&O X 3, no acute distress, answers questions appropriately - Head Head exam: Present: atraumatic, normal inspection - Neck Neck exam general surgery: Present: supple - Respiratory Respiratory exam: Present: decreased breath sounds. Absent: rales, respiratory distress, wheezes - Cardiovascular Cardiovascular exam: Present: RRR, +S1, +S2. Absent: tachycardia - GI/Abdominal GI/Abdominal exam: Present: normal bowel sounds, soft. Absent: rebound, rigid, tenderness - Extremities Exam Additional comments: Still has some purulent discharge and more erythema around in the incisions area - Back Exam Back exam: Absent: CVA tenderness (L), CVA tenderness (R) - Neurological Exam Neurological exam: Present: alert, oriented X3 - Psychiatric Psychiatric exam: Present: normal affect, normal mood Internal Medicine: Result - Labs CBC & Chem 7: 03/28/17 15:40 03/29/17 05:45 - ABG Interpretation ABG results: PT/INR, D-dimer PT 11.5 Seconds (9.4-12.1) 03/28/17 15:40 - VTE Documentation of Mechanical Device: Intermittent pneumatic compression device Consult Discharge Plan - Plan Referrals: NONE,PCP [Primary Care Provider] - Prescriptions: OxyCODONE/APAP 5/325 [Percocet 5/325 MG] 1 each PO Q6HR PRN #28 tablet PRN Reason: Pain OxyCODONE/APAP 5/325 [Percocet 5/325 MG] 1 each PO Q6HR PRN #28 tablet PRN Reason: Pain cephALEXin [Keflex] 500 mg PO QID #40 capsule
[2017-03-30] MEDS: *HR* OxyCODONE/APAP 7.5/325 TABLET PO PRN ×2 (17:14→22:21)
[2017-03-30] MEDS ORDERED: Vancomycin 1,500 MG in D5% in Water 250 ML IVPB SCH (19:00)
[2017-03-30] MEDS ORDERED: Insulin LISPRO 300 UNITS/3 ML VIAL SQ SCH (21:00)
[2017-03-31] MEDS: *HR* Morphine 2 MG/ML SYRINGE IVP PRN (00:25)
[2017-03-31] MEDS: *HR* OxyCODONE/APAP 7.5/325 TABLET PO PRN ×2 (03:03→07:25)
[2017-03-31 03:08] LABS: Basophils # 0.1 K/mcL (0.0-0.2); Basophils % 1.2 %; Eosinophils # 0.2 K/mcL (0.0-0.6); Eosinophils % 2.7 %; Hematocrit 37.5 % (37.5-50.1); Immature Granulocytes % 2.3 % (0-4); Lymphocytes # 1.9 K/mcL (0.6-4.6); Lymphocytes % 25.8 %; Mean Corpuscular HGB Conc 35.2 g/dL (31.6-35.5); Mean Corpuscular Hemoglobin 31.9 pg (28.0-33.3); Mean Corpuscular Volume 90.6 fL (83.0-100.0); Mean Platelet Volume 9.5 fL (9.4-12.4); Monocytes # 0.7 K/mcL (0.0-1.3); Monocytes % 9.7 %; Neutrophils # 4.2 K/mcL (1.6-8.9); Platelet Count 209 K/mcL (140-400); Red Blood Count 4.14 M/mcL (4.19-5.50); Red Cell Distribution Width 12.7 % (11.5-14.5); Segmented Neutrophils % 58.3 %
[2017-03-31 03:23] LABS: BUN/Creatinine Ratio 10 (6-26); Blood Urea Nitrogen 7 mg/dL (6-20); C-Reactive Protein 25 mg/L (Less than 10); Calcium 8.7 mg/dL (8.6-10.3); Carbon Dioxide 32 mEq/L (23-29); Chloride 98 mEq/L (98-107); Glucose 348 mg/dL (70-105); Hemoglobin 13.2 g/dL (12.9-16.9); Magnesium 1.8 mg/dL (1.6-2.6); Osmolality,Calculated 294 (280-300); Potassium 3.2 mEq/L (3.5-5.1); Sodium 136 mEq/L (136-145); eGFR For African Americans > 60 (> 60); eGFR For Non-African Americans > 60 (> 60)
--- NOTE | 2017-03-31 07:01 | Orthopedics Progress Note ---
Date of Encounter: 03/31/17 Time of Encounter: 07:00 Subjective Interval history: Patient was seen this morning doing well without complaints. Afebrile vital signs stable. Operative extremity: Neurovascularly intact Dressing clean dry and intact Calves nontender Assessment and plan: Continue with postoperative care Cultures no growth to date, dc on keflex Objective Vital signs: Vital Signs Temp Pulse Resp BP Pulse Ox 03/31/17 04:18 97.9 F 77 18 118/75 98 03/30/17 23:55 98.0 F 88 18 142/87 100 03/30/17 19:07 98.2 F 82 17 115/69 99 03/30/17 15:15 98.4 F 77 14 104/63 98 03/30/17 11:42 98.4 F 76 15 100/62 100 Intake and Output 03/30/17 03/30/17 03/31/17 15:59 23:59 07:59 Intake Total 640 / 640 170 / 170 200 / 200 Balance 640 / 640 170 / 170 200 / 200 Intake: IV Fluids 520 / 520 Rocephin 2,000 MG In Water for 20 / 20 inj. (sterile) 20 ML @ 600 mls/ hr IVP Q24H [facility] Rx#:[id number] Vancocin 1,250 MG In Dextrose 5 250 / 250 % 250 ML @ 166.67 mls/hr IVPB Q12H [facility] Rx#:[id number] Oral 120 / 120 170 / 170 200 / 200 Other: Meal Breakfast Percent of Meal Consumed 50% # Voids 2 1 2 Blood Glucose* 119 173 - Labs CBC & BMP: 03/31/17 02:55 03/31/17 02:55 Labs: Abnormal lab results RBC 4.14 M/mcL (4.19-5.50) L 03/31/17 02:55 ESR 46 mm/hr (0-10) H 03/31/17 02:55 Potassium 3.2 mEq/L (3.5-5.1) L 03/31/17 02:55 Carbon Dioxide 32 mEq/L (23-29) H 03/31/17 02:55 Creatinine 0.69 mg/dL (0.70-1.30) L 03/31/17 02:55 Glucose 348 mg/dL (70-105) H 03/31/17 02:55 POC Glucose 173 (58-89) H 03/30/17 22:12 Hemoglobin A1c 12.0 % (-5.6) H 03/28/17 15:40 C-Reactive Protein 25 mg/L (Less than 10) H 03/31/17 02:55 Triglycerides 221 mg/dL (< 150) H 03/29/17 05:45 LDL Cholesterol, Calc 108 mg/dL (0-99) H 03/29/17 05:45 VLDL Cholesterol, Calc 44 mg/dL (< 31) H 03/29/17 05:45 HDL Cholesterol 24 mg/dL (40-59) L 03/29/17 05:45 Cholesterol/HDL Ratio 7.3 (0-4.9) H 03/29/17 05:45 Vancomycin Trough 8.3 mcg/mL (10-20) L 03/30/17 06:05 - VTE Documentation of Mechanical Device: Intermittent pneumatic compression device Consult Discharge Plan - Plan Referrals: NONE,PCP [Primary Care Provider] - Prescriptions: cephALEXin [Keflex] 500 mg PO QID #40 capsule OxyCODONE/APAP 5/325 [Percocet 5/325 MG] 1 each PO Q6HR PRN #28 tablet PRN Reason: Pain OxyCODONE/APAP 5/325 [Percocet 5/325 MG] 1 each PO Q6HR PRN #28 tablet PRN Reason: Pain
[2017-03-31 07:21] VITALS: BP 135/87
[2017-03-31] MEDS ORDERED: FLUARIX QUAD 2017-18 36MOS UP/PF 0.5 ML SYRINGE IM ONE (07:23)
[2017-03-31] MEDS: Insulin LISPRO 300 UNITS/3 ML VIAL SQ SCH (07:53)
[2017-03-31] MEDS: Gabapentin 400 MG CAPSULE PO SCH (07:54)
--- NOTE | 2017-03-31 08:21 | Internal Med Progress Note ---
Date of Encounter: 03/31/17 Time of Encounter: 08:18 - Assessment and plan (1) Abscess of right hand Current Visit: Yes Status: Acute Assessment and plan: s/p Right hand incision and drainage of long finger flexor tendon sheath abscess extending to carpal tunnel s/p Right hand excision of partial ruptured flexor digitorum was shells tendon of the long finger POD # 3 Wound cx no growth in 3 days Ortho recommended PO Keflex and f/u with Dr. Metzger (2) Non-healing surgical wound Current Visit: Yes Status: Acute Qualifiers: Qualified Code(s): T81.89XA - Other complications of procedures, not elsewhere classified, initial encounter (3) Uncontrolled diabetes mellitus Current Visit: Yes Status: Acute Assessment and plan: HbA1C 12 His BS are little better now recommend to take Levemir to 40 U BID and inc Novolog to 8 U TID Qualifiers: Diabetes mellitus type: type 2 Qualified Code(s): E11.65 - Type 2 diabetes mellitus with hyperglycemia (4) HTN (hypertension) Current Visit: Yes Status: Acute Assessment and plan: stable with home med Metoprolol Qualifiers: Hypertension type: essential hypertension Qualified Code(s): I10 - Essential (primary) hypertension (5) CAD (coronary artery disease) Current Visit: Yes Status: Chronic Assessment and plan: s/p CABG and PCI cont home med Metoprolol Started him on Lipitor here for HLD also recommend him to take ASA 81mg Qualifiers: Coronary Disease-Associated Artery/Lesion type: [place] artery Qualified Code(s): I25.10 - Atherosclerotic heart disease of [place] coronary artery without angina pectoris - Subjective Interval history: Mr. Dudley is a 46 year old male with known PMH of DM2, HTN, CAD s/p PCI and CABG x 3 vessel , who has punctured wound with metal in Rt hand 3 months ago, which initially debrided a another hospital. He subsequently developed superficial flexor tenosynoivtis of Rt long finger and underwent second I & D at [place]. His wound still not healing well, so he did go for 3rd I & D of Rt hand by Ortho / Hand Surgeon Dr. Metzger on 03/06/17. His wound cx grew Proteus at that time and he was placed on Augmentin abx. However his hand wound still looks infected with purulent drainage and erythema through the incisions. He did go to OR 03/28/17. He denied any CP / SOB. Denied any fever / chills. pt stated he is feeling lot better today, able to move his hand fingers well. - Constitutional Vitals: Temp Pulse Resp BP Pulse Ox 98.0 F 84 18 135/87 94 03/31/17 07:17 03/31/17 07:17 03/31/17 07:17 03/31/17 07:17 03/31/17 07:17 General appearance: Present: A&O X 3, no acute distress, answers questions appropriately - Head Head exam: Present: atraumatic, normal inspection - Respiratory Respiratory exam: Present: CTAB. Absent: accessory muscle use, rales, rhonchi, wheezes - Cardiovascular Cardiovascular exam: Present: RRR, +S1, +S2. Absent: diastolic murmur, gallop, rubs, systolic murmur - GI/Abdominal GI/Abdominal exam: Present: soft. Absent: rebound, rigid, tenderness - Extremities Exam Extremities exam: Absent: calf tenderness, pedal edema, tenderness Additional comments: improving swelling in rt hand dry dressing - Back Exam Back exam: Absent: CVA tenderness (L), CVA tenderness (R) - Psychiatric Psychiatric exam: Present: normal affect, normal mood Internal Medicine: Result - Labs CBC & Chem 7: 03/31/17 02:55 03/31/17 02:55 Labs: Short CBC 03/31/17 Range/Units 02:55 WBC 7.3 (4.3-11.1) K/mcL Hgb 13.2 D (12.9-16.9) g/dL Hct 37.5 (37.5-50.1) % Plt Count 209 (140-400) K/mcL Neutrophils # 4.2 (1.6-8.9) K/mcL BMP 03/31/17 02:55 Sodium 136 Potassium 3.2 L Chloride 98 Carbon Dioxide 32 H BUN 7 Creatinine 0.69 L Glucose 348 H Calcium 8.7 - ABG Interpretation ABG results: PT/INR, D-dimer PT 11.5 Seconds (9.4-12.1) 03/28/17 15:40 - VTE Documentation of Mechanical Device: Intermittent pneumatic compression device Consult Discharge Plan - Plan Referrals: NONE,PCP [Primary Care Provider] - Prescriptions: OxyCODONE/APAP 5/325 [Percocet 5/325 MG] 1 each PO Q6HR PRN #28 tablet PRN Reason: Pain OxyCODONE/APAP 5/325 [Percocet 5/325 MG] 1 each PO Q6HR PRN #28 tablet PRN Reason: Pain Atorvastatin [Lipitor] 20 mg PO HS #30 tablet cephALEXin [Keflex] 500 mg PO QID #40 capsule Insulin ASPART [Novolog Flexpen] 8 unit SQ TID 30 Days insuln.pen Insulin DETEMIR [Levemir] 40 unit SQ BID 30 Days mls
[2017-03-31] MEDS: Insulin DETEMIR 100 UNIT/ML X5UNITS SQ SCH (09:05)
== END 2017-03-31 09:30 | disposition home or self-care (01) ==
LOC: 3NENU
PROVIDERS: ADMIT Orthopaedic Surgery Hand Surgery; ATTEND Orthopaedic Surgery Hand Surgery

== ENCOUNTER 2017-04-22 14:28 | Inpatient (IN) ==
[2017-04-22] MEDS ORDERED: Albuterol 2.5 MG/3 ML NEBULIZER IH ONE (14:55)
[2017-04-22] MEDS ORDERED: Ringers Solution, Lactated 1,000 ML IVC SCH (15:00)
[2017-04-22] MEDS ORDERED: Insulin Regular, Human 100 UNIT/ML SQ ONE (15:06)
--- NOTE | 2017-04-22 15:07 | Anesthesia Evaluation PreOp ---
Date of Encounter: 04/22/17 Time of Encounter: 15:05 - Past History Planned Operation: I & D Right Hand Cardiac History: [place], HTN, Hyperlipidemia, Cardiac Surgery (CABG x 3), Cardiac Stent (stents x 5) Pulmonary History: Smoker (30 years) RN FACULTY History: Denies Any Significant HX Other Medical History: Diabetes Type II Anesthesia History: No Prior Anesthetic Complications, Past Anesthesia Alcohol Use: none Drug use: none Medications and Allergies Metoprolol [Lopressor] 25 mg PO DAILY 04/25/16 [History] Gabapentin [Neurontin] 800 mg PO QID 01/10/17 [History] OxyCODONE/APAP 5/325 [Percocet 5/325 MG] 1 each PO Q6HR PRN #28 tablet 03/28/17 [Rx] OxyCODONE/APAP 5/325 [Percocet 5/325 MG] 1 each PO Q6HR PRN #28 tablet 03/28/17 [Rx] cephALEXin [Keflex] 500 mg PO QID #40 capsule 03/30/17 [Rx] Atorvastatin [Lipitor] 20 mg PO HS #30 tablet 03/31/17 [Rx] Insulin ASPART [Novolog Flexpen] 8 unit SQ TID 30 Days insuln.pen 03/31/17 [Rx] Insulin DETEMIR [Levemir] 40 unit SQ BID 30 Days mls 03/31/17 [Rx] 3 Allergy/AdvReac Type Severity Reaction Status Date / Time No Known Allergies Allergy Verified 03/28/17 13:53 - Meds/Allergy Pre-op Review Medications Reviewed: Yes Allergies Reviewed: Yes Beta Blockers on Current Med List: Yes If Beta Blockers taken, Date/Time (Last Dose taken): 04/22/2017 at 0700 Anesthesia Results - Labs Laboratory Tests 03/28/17 03/31/17 04/10/17 15:40 02:55 11:34 WBC 9.9 Hgb 16.2 Hct 45.0 Plt Count 262 PT 11.5 INR 1.1 Sodium 136 Potassium 3.2 L BUN 7 Creatinine 0.69 L - Imaging EKG: report reviewed (03/06/2017 SINUS RHYTHM POSSIBLE LEFT ATRIAL ENLARGEMENT) Anesthesia Exam O2 Sat Height 1.85 m Height 1.85 m Weight 85.275 kg Weight 85.275 kg O2 Sat by Pulse Oximetry 100 Vital Signs Temp Pulse Resp BP Pulse Ox 98.8 F 81 18 105/69 100 04/22/17 14:57 04/22/17 14:57 04/22/17 14:57 04/22/17 14:57 04/22/17 14:57 Blood glucose: 309 Height: 6'1'' Weight: 188 lbs NPO (# of Hours): 8 Pain Scale: 8 (right hand) Pain Scale Used: Numeric (1 - 10) - HEENT Pupil (Motor): EOMI Mallampati: II Teeth: Edentulous Oral Opening: Greater than 3 - RN FACULTY LOC: Oriented RN FACULTY Motor: Normal LUE, Normal RLE, Normal LLE, Normal Face, Deficit RUE RN FACULTY Sensory: Normal: LUE, RLE, LLE, Face, Deficit: RUE - Cardiac Rhythm: Regular Murmur: None - Pulmonary Breath Sounds: bilateral Clear Respiratory Effort: Symmetrical Anesthesia Assess/Plan ASA Score: 3 Modified Melania Scale for Level of Consciousness: Cooperative, oriented, and tranquil Anesthetic Plan: General Monitoring Plan: Standard Monitors Recovery Plan: PACU
[2017-04-22] MEDS ORDERED: *HR* Midazolam HCl 2 MG/2 ML VIAL ONE (15:59)
[2017-04-22] MEDS ORDERED: Lidocaine -MPF 2% 2 ML VIAL ONE (15:59)
[2017-04-22] MEDS ORDERED: *HR* FentaNYL (PF) 100 MCG/2 ML VIAL ONE ×2 (15:59→17:44)
[2017-04-22] MEDS ORDERED: *HR* Propofol 200 MG/20 ML VIAL IVP ONE (15:59)
[2017-04-22] MEDS ORDERED: Ondansetron 4 MG/2 ML VIAL ONE (15:59)
[2017-04-22] MEDS ORDERED: Dexamethasone 4 MG/ML VIAL ONE (15:59)
--- NOTE | 2017-04-22 16:31 | History & Physical Report ---
Date of Encounter: 04/22/17 Time of Encounter: 16:30 24 Hour HP Update - Instructions Instructions: If the History and Physical is less than 30 days old and was completed prior to A.M. admission and or procedure and has NOT been updated on calendar day of procedure please complete this update prior to performing procedure. - Update Patient reports changes in Medical Condition: No Changes in examination, assessment, or condition: No Changes in Medication: No Preop tests/diagnostics Reviewed: Yes Surgery Remains Indicated: Yes Consent for Planned Operative Procedure(s) Verified: Yes - Pre-Operative Checklist Preoperative Checklist Indicated: Yes Prophylactic Antibiotic Ordered: Yes (on hold) Is VTE Prophylaxis Indicated?: Yes
[2017-04-22] MEDS ORDERED: cefTRIAXone 2,000 MG in Water for inj. (sterile) 20 ML IVP ONE ×2 (17:05→19:15)
[2017-04-22] MEDS ORDERED: *HR* Labetalol 20 MG/4 ML SYRINGE IVP PRN (17:27)
[2017-04-22] MEDS ORDERED: *HR* HYDROmorphone (PF) 1 MG/ML SYRINGE IVP PRN (17:27)
[2017-04-22] MEDS ORDERED: Ondansetron 4 MG/2 ML VIAL IVP ONE ×2 (17:27→19:15)
[2017-04-22] MEDS ORDERED: *HR* Promethazine 25 MG/ML VIAL IVP PRN (17:27)
--- NOTE | 2017-04-22 18:51 | Anesthesia Evaluation Post Op ---
Date of Encounter: 04/22/17 Time of Encounter: 18:50 - Vital Signs Vital Signs: Vital Signs/O2 Sat, Most Current Temp Pulse Resp BP Pulse Ox 97.5 F L 73 16 130/76 94 04/22/17 18:50 04/22/17 18:50 04/22/17 18:50 04/22/17 18:50 04/22/17 18:50 - Lungs Lungs: Clear Ascult./Percussion - Airway Airway: Non-obstructed - Cardiovascular Regular Rate - Mental Status Mental Status: Asleep with brisk response to light stimulation - Pain Pain Scale: 5 Pain Scale used: Numeric (1 - 10) - Nausea Vomiting Nausea Vomiting: Not Present - Hydration Hydration: Ice chips, Has not voided - Discharge PostOp Status: Transfer Patient to floor
[2017-04-22] MEDS ORDERED: Temazepam 15 MG CAPSULE PO PRN (19:15)
[2017-04-22] MEDS ORDERED: Ondansetron 4 MG/2 ML VIAL IVP PRN (19:15)
[2017-04-22] MEDS ORDERED: D5% in Water 1,000 ML IVC PRN (19:15)
[2017-04-22] MEDS ORDERED: *HR* Dextrose 50 % in Water (Syg) 50 ML SYRINGE IVP PRN (19:15)
[2017-04-22] MEDS ORDERED: Dextrose Gel 15 GM/37.5 ML TUBE PO PRN ×2 (19:15)
[2017-04-22] MEDS: *HR* Morphine 2 MG/ML SYRINGE IVP PRN ×2 (19:26→22:32)
[2017-04-22] MEDS: Ringers Solution, Lactated 1,000 ML IVC SCH (19:33)
[2017-04-22] MEDS: *HR* OxyCODONE Immed Rel 5 MG TABLET PO PRN (21:12)
[2017-04-22] MEDS: Insulin LISPRO 300 UNITS/3 ML VIAL SQ SCH ×2 (21:25→22:34)
[2017-04-22] MEDS: Insulin DETEMIR 100 UNIT/ML X5UNITS SQ SCH (21:48)
--- NOTE | 2017-04-22 22:28 | Internal Medicine Consult Note ---
Date of Encounter: 04/22/17 Time of Encounter: 21:30 - Assessment and Plan (1) DVT prophylaxis Current Visit: Yes Status: Acute Assessment and plan: Heparin SC (2) Uncontrolled diabetes mellitus Current Visit: No Status: Acute Assessment and plan: Pt has poorly controlled DM. Compliant with home med. Increased Glu probably due to infection. - BMP, and Hgb A1C - Cont levemir 40 units bid, prandial insulin lispro 8 units with every meal, and a medium dose sliding scale before meals, add SSI at bedtime. - Adjust dose of insulin per Glu level. - Will follow with pt. Qualifiers: Diabetes mellitus type: type 2 Diabetes mellitus complication status: without complication Diabetes mellitus custodial insulin use: with custodial use Qualified Code(s): E11.65 - Type 2 diabetes mellitus with hyperglycemia; Z79.4 - extermination inspector (current) use of insulin; Z79.4 - [facility] (current) use of insulin; Z79.4 - extermination inspector (current) use of insulin; Z79.4 - extermination inspector (current ) use of insulin (3) Abscess of right hand Current Visit: No Status: Acute Assessment and plan: S/P surgery, management per orthopedics and ID. Pt is on zosyn now, now signs of sepsis (4) HTN (hypertension) Current Visit: No Status: Acute Assessment and plan: Cont home med metoprolol, cont pain control. F/U BP. Qualifiers: Hypertension type: essential hypertension Qualified Code(s): I10 - Essential (primary) hypertension (5) CAD (coronary artery disease) Current Visit: No Status: Chronic Assessment and plan: Hx od CAD s/p CABG. No chest pain now. Cont home med beta chris and Statin, add ASA 81mg po daily. Qualifiers: Coronary Disease-Associated Artery/Lesion type: bypass graft [place] vs. transplanted heart: [place] heart Associated angina: without angina Qualified Code(s): I25.810 - Atherosclerosis of coronary artery bypass graft(s) without angina pectoris Internal Medicine - CN: HPI - Data of Consult Patient: new to practice Consult date: 04/22/17 Requesting Physician: Konrad Metzger MD - Consult Narrative Reason for consult: Uncontrolled DM History of present illness: Mr. Dudley is a 46 year old male with Hx of DM, HTN, CAD s/p CABG, admitted to orthopedic service for right hand injury and infection. Pt has right hand injury caused by hiting metal antwon about 4 months ago. He had several surgery and had infection. He was seen by ID previously. Pt denies chest pain. Has DM and Glu level is poorly controlled. He c/o mild polydipsia and polyuria. No significant body weight change. Patient takes Levemir 40 units twice a day, plus prandial insulin 8 units with every meal, plus sliding scale at home. His sugar level has been well controlled at around 120 level until he had right hand infection. Medical consult was called for uncontrolled diabetes. Past Med Surg Social Fam HX - Past Medical History Medical history: diabetes, hypertension, myocardial infarction Psychiatric history: no psych history - Past Surgical History Surgical History: orthopedic, other - Social History Smoking Status: Current every day smoker Smokeless Tobacco Status: No Alcohol use: none Drug use: none - Family History Brother Name: John Age: 44 Family Member Ethnicity: Non- Age at : 44 Cause of : Organ failure Hx Family Cardiac Disorders: No Hx Family Respiratory Disorders: No Hx Family Cancer: No Hx Family GI Disorders: No Hx Family Genitourinary Disorders: No Hx Family Endocrine Disorder: Yes (DM) Hx Family Musculoskeletal Disorders: No Hx Family Neuromuscular Disorders: No Hx Family Neurologic Disorders: No Hx Family HEENT Disorders: No Hx Family Autoimmune Disorders: No Hx Family Reproductive Disorders: No Hx Family Psychosocial Disorders: No Hx Family Medical Disorders: No All systems: reviewed and no additional remarkable complaints except as stated Internal Medicine - CN: Meds Metoprolol [Lopressor] 25 mg PO DAILY 04/25/16 [History] Gabapentin [Neurontin] 800 mg PO QID 01/10/17 [History] OxyCODONE/APAP 5/325 [Percocet 5/325 MG] 1 each PO Q6HR PRN #28 tablet 03/28/17 [Rx] OxyCODONE/APAP 5/325 [Percocet 5/325 MG] 1 each PO Q6HR PRN #28 tablet 03/28/17 [Rx] cephALEXin [Keflex] 500 mg PO QID #40 capsule 03/30/17 [Rx] Atorvastatin [Lipitor] 20 mg PO HS #30 tablet 03/31/17 [Rx] Insulin ASPART [Novolog Flexpen] 8 unit SQ TID 30 Days insuln.pen 03/31/17 [Rx] Insulin DETEMIR [Levemir] 40 unit SQ BID 30 Days mls 03/31/17 [Rx] Amoxicillin/Clavulanate [Augmentin] 500 mg PO BID 04/22/17 [History] Lactobacillus [Culturelle] 1 each PO BID 04/22/17 [History] 3 Allergy/AdvReac Type Severity Reaction Status Date / Time No Known Allergies Allergy Verified 03/28/17 13:53 Internal Medicine - CN: Exam - Constitutional Vitals: Temp Pulse Resp BP Pulse Ox 97.6 F 80 16 151/90 99 04/22/17 21:50 04/22/17 21:50 04/22/17 21:50 04/22/17 21:50 04/22/17 21:50 General appearance IM: Present: A&O X 3, no acute distress, answers questions appropriately - Head Head exam: Present: atraumatic, normocephalic - Eye Eye exam: Present: PERRL - Neck Neck exam general surgery: Present: full ROM, supple, trachea midline - Respiratory Respiratory exam: Present: CTAB. Absent: respiratory distress - Cardiovascular Cardiovascular exam IM: Present: RRR, +S1, +S2 - GI/Abdominal GI/Abdominal exam IM: Present: normal bowel sounds, soft. Absent: tenderness - Extremities Exam Extremities exam IM: Present: full ROM Additional comments: Right hand s/p surgery, well dressed. - Neurological Exam Neurological exam: Present: CN II-XII intact, oriented X3, no focal deficits - Psychiatric Psychiatric exam: Absent: depressed - Skin Skin exam IM: Present: dry, warm Consult Discharge Plan - Plan Referrals: Lorin Blair LEGAL ADVISOR [Primary Care Provider] -
[2017-04-22 22:42] LABS: Basophils # 0.1 K/mcL (0.0-0.2); Basophils % 0.7 %; Eosinophils % 0.3 %; Hematocrit 41.6 % (37.5-50.1); Hemoglobin 14.5 g/dL (12.9-16.9); Immature Granulocytes % 0.7 % (0-4); Lymphocytes % 10.4 %; Mean Corpuscular HGB Conc 34.9 g/dL (31.6-35.5); Mean Corpuscular Hemoglobin 31.3 pg (28.0-33.3); Mean Corpuscular Volume 89.8 fL (83.0-100.0); Mean Platelet Volume 10.1 fL (9.4-12.4); Monocytes # 0.2 K/mcL (0.0-1.3); Neutrophils # 8.5 K/mcL (1.6-8.9); Platelet Count 154 K/mcL (140-400); Red Blood Count 4.63 M/mcL (4.19-5.50); Red Cell Distribution Width 13.1 % (11.5-14.5); Segmented Neutrophils % 85.9 %
[2017-04-22 23:24] LABS: Hemoglobin A1C 11.2 %
[2017-04-22] MEDS: Piperacillin/Tazobactam 3.375 GM/200 ML BAG IVPB SCH (23:35)
[2017-04-22 23:53] LABS: BUN/Creatinine Ratio 7 (6-26); Blood Urea Nitrogen 5 mg/dL (6-20); Calcium 8.8 mg/dL (8.6-10.3); Carbon Dioxide 27 mEq/L (23-29); Chloride 101 mEq/L (98-107); Glucose 365 mg/dL (70-105); Osmolality,Calculated 294 (280-300); Potassium 3.6 mEq/L (3.5-5.1); Sodium 136 mEq/L (136-145); eGFR For African Americans > 60 (> 60); eGFR For Non-African Americans > 60 (> 60)
[2017-04-23] MEDS: *HR* OxyCODONE Immed Rel 5 MG TABLET PO PRN ×5 (01:14→20:18)
[2017-04-23] MEDS: *HR* Morphine 2 MG/ML SYRINGE IVP PRN ×5 (04:35→22:00)
[2017-04-23] MEDS: *HR* Heparin 5,000 UNIT/ML VIAL SQ SCH ×2 (04:35→16:38)
[2017-04-23 06:53] LABS: Basophils # 0.1 K/mcL (0.0-0.2); Basophils % 0.6 %; Eosinophils % 0.2 %; Hematocrit 41.5 % (37.5-50.1); Hemoglobin 14.4 g/dL (12.9-16.9); Immature Granulocytes % 0.5 % (0-4); Lymphocytes # 1.5 K/mcL (0.6-4.6); Lymphocytes % 14.5 %; Mean Corpuscular HGB Conc 34.7 g/dL (31.6-35.5); Mean Corpuscular Hemoglobin 31.1 pg (28.0-33.3); Mean Corpuscular Volume 89.6 fL (83.0-100.0); Mean Platelet Volume 10.1 fL (9.4-12.4); Monocytes # 0.7 K/mcL (0.0-1.3); Monocytes % 6.3 %; Neutrophils # 8.2 K/mcL (1.6-8.9); Platelet Count 153 K/mcL (140-400); Red Blood Count 4.63 M/mcL (4.19-5.50); Red Cell Distribution Width 12.6 % (11.5-14.5); Segmented Neutrophils % 77.9 %
[2017-04-23 07:19] LABS: BUN/Creatinine Ratio 9 (6-26); Blood Urea Nitrogen 6 mg/dL (6-20); Calcium 8.9 mg/dL (8.6-10.3); Carbon Dioxide 29 mEq/L (23-29); Chloride 104 mEq/L (98-107); Glucose 309 mg/dL (70-105); Osmolality,Calculated 293 (280-300); Potassium 4.1 mEq/L (3.5-5.1); Sodium 137 mEq/L (136-145); eGFR For African Americans > 60 (> 60); eGFR For Non-African Americans > 60 (> 60)
[2017-04-23] MEDS: Lactobacillus 1 EACH CAP.SPRINK PO SCH ×2 (07:54→20:18)
[2017-04-23] MEDS: Aspirin Enteric Coated 81 MG Tablet PO SCH (07:54)
[2017-04-23] MEDS: Insulin LISPRO 300 UNITS/3 ML VIAL SQ SCH ×7 (07:56→20:20)
[2017-04-23] MEDS: Insulin DETEMIR 100 UNIT/ML X5UNITS SQ SCH ×2 (09:16→20:20)
[2017-04-23] MEDS: Piperacillin/Tazobactam 3.375 GM/200 ML BAG IVPB SCH ×3 (09:49→23:19)
--- NOTE | 2017-04-23 10:53 | Infectious Disease Consult ---
Date of Encounter: 04/23/17 Time of Encounter: 10:49 Assessment and Plan (1) Infection of right hand Status: Acute Assessment and plan: Causative organism unclear. Location: Palmar aspect of the right hand. Secondary to non-healing surgical wound, complicated by uncontrolled DM. Previous cultures from February only grew anaerobes, but the patient had been on a prolonged course of PO antibiotics prior to surgery. Before that, Mar 02 - Prevotella and K. pneumoniae; Mar 06 - P. mirabilis. The patient appeared to improve with PO Augmentin and Doxycycline, but continued to have drainage that was concerning for non-resolving infection. Status post debridment 04/22/17. Details of the surgery unknown. No operative note available for review. Will discuss with Dr. Metzger. Intra-op cultures pending. May need to consider fungal and AFB testing. Check ESR and CRP. I will see if we can add it to the patient's labs from yesterday that were drawn before surgery. Continue Zosyn 3.375 grams IV Q8H. Start Vancomycin IV. Pharmacy to dose. Goal trough ~15. Duration of treatment depends on the clinical picture. Depending on the extent of the infection, the patient may require 2-6 weeks of IV antibiotics. Since he has failed multiple courses of PO antibiotics and multiple surgeries, we will likely need to treat for closer to 6 weeks. Await intra-op cultures. De-escalate antibiotics if/when able. Monitor renal function and for drug toxicity and dose-adjust antibiotics. Pain management, activity restrictions, and wound care per the ortho team. (2) Uncontrolled diabetes mellitus Status: Acute Assessment and plan: Hgb A1C 11.2. Uncontrolled. Recommend aggressive glucose monitoring and control to promote wound healing and prevent re-infection. Refer to endocrinology/diabetes management on discharge. Hospitalist consulted to assist with management while inpatient. Qualifiers: Diabetes mellitus type: type 2 Diabetes mellitus complication status: without complication Diabetes mellitus correction insulin use: with correction use Qualified Code(s): E11.65 - Type 2 diabetes mellitus with hyperglycemia; Z79.4 - [facility] (current) use of insulin; Z79.4 - [facility] (current) use of insulin; Z79.4 - tank terminal gauger (current) use of insulin; Z79.4 - tank terminal gauger (current ) use of insulin (3) Non-healing surgical wound Status: Acute Assessment and plan: Likely multifactorial: uncontrolled DM + infection. Wound care per the ortho team. Qualifiers: Encounter type: initial encounter Qualified Code(s): T81.89XA - Other complications of procedures, not elsewhere classified, initial encounter (4) HTN (hypertension) Status: Acute Qualifiers: Hypertension type: essential hypertension Qualified Code(s): I10 - Essential (primary) hypertension (5) CAD (coronary artery disease) Status: Chronic Qualifiers: Coronary Disease-Associated Artery/Lesion type: bypass graft [place] vs. transplanted heart: [place] heart Associated angina: without angina Qualified Code(s): I25.810 - Atherosclerosis of coronary artery bypass graft(s) without angina pectoris Infectious Disease HPI - Data of Consult Patient: known to practice within the last 3 years Consult date: 04/23/17 Requesting Physician: Konrad Metzger MD Primary Care Provider: Lorin Blair, - Consult Narrative Reason for consult: Right hand infection History of present illness: Mr. Dudley is a 46 year old male with a past medical history of poorly controlled diabetes, hypertension, and CAD. The patient was admitted to the hospital April 22 for right hand infection. We are consulted Genora for antibiotic recommendations for the right hand infection. Briefly, the patient's a 46-year-old male with past medical history as stated above. The patient is known to the infectious disease service as we were consulted on his case in the outpatient setting. He had been referred to our clinic for concern about a recurrent right hand infection. Back in late October and early November he sustained a puncture wound to the right palm. He was seen in a local ER and placed on a ten-day course of Augmentin. He continued to have symptoms and was evaluated at [facility] and underwent surgery on March 02. At that time, cultures grew out Klebsiella pneumoniae and Prevotella. He was treated with a ten-day course of Cipro postoperatively and did well until the end of January when he started to have increased drainage and pain. He was seen in the ER at [place] and refused transfer to [facility] and was discharged home with a ten-day course of oral ciprofloxacin again. He was status quo be referred to Dr. Metzger who he saw on March 05 who recommended surgical intervention. On March 06, the patient underwent a right hand incision and debridement of the distal palmar abscess with infection of the long finger flexor tendon sheath, right hand incision and debridement of the mid palmar abscess, and right wrist open carpal tunnel release with neurolysis of the median nerve. He was originally discharged postoperatively on Cipro, but his intraoperative cultures grew out Proteus mirabilis and he was switched to oral Augmentin to complete a ten-day course. He states he continued to have drainage, but was doing relatively better until then February when he noticed an increase in the drainage that was thick and yellow. He was evaluated by orthopedics again on March 28 and readmitted to the hospital for repeat incision and debridement. Intraoperative cultures were obtained that grew out only anaerobes. He was discharged home on another 10 day course, this time of oral Keflex and he reports he did okay until about 2 weeks ago when he again noticed an increase in the amount of drainage and pain. He saw orthopedics and was placed on oral Augmentin and clindamycin and was referred to our office. At that time, the patient noted that he had an improvement in his symptoms. He did have a mildly elevated inflammatory marker 28, but his CRP was normal. After a long discussion with the patient we opted to continue the oral course of antibiotics since he seems to be getting better and he did not appear toxic and his inflammatory markers were not that impressive. I did discontinue the clindamycin and switch to oral doxycycline and continued the Augmentin. Apparently, the patient was seen by orthopedics 2 days ago and there was concern about continued infection so he was admitted to the hospital for operative intervention. On admission, the patient was afebrile and hemodynamically stable. He had no sepsis criteria. He was given IV Rocephin preoperatively and is currently on IV Zosyn. No operative report is available for review. There are intraoperative cultures that are pending. We've been asked to evaluate and make further recommendations. During my exam today, the patient endorses a history as stated above. He denies any fevers or chills or rigors. He denies any headache or neck pain. He denies any weakness or dizziness. He denies any chest pain, shortness of breath, or cough. He denies any nausea or vomiting or constipation. He read does report that he was having diarrhea, but started probiotics after the office visit with me and the diarrhea resolved. He denies any abdominal pain, urinary complaints, or appetite changes. He does complain of chronic pain in the right hand that is not any worse or better since having surgery yesterday. He reports numbness and tingling to all the distal fingers of the right hand. He denies any oral thrush or new skin lesions. He does report that his blood sugars been running high at home sometimes in the 300 range despite taking his insulins appropriately. The patient is retired from a local factory. He reports that he smokes about 5 cigarettes per day. He denies any alcohol or illicit drug use. He denies any recent travel. He lives at home with his and 2 children. He does report that they have a dog and it appears he has sustained a scratch to the left arm, but he denies any bites or licks or scratches to the right hand. CC: Konrad Metzger MD Past Med Surg Social Fam HX - Past Medical History Attestation: Yes The following information was validated with the patient. Source: patient, old records reviewed, nursing notes reviewed Medical history: diabetes, hypertension, myocardial infarction Psychiatric history: no psych history - Past Surgical History Surgical History: orthopedic, other (Right hand debridment.) - Social History Smoking Status: Current every day smoker Packs per day: 1 Smokeless Tobacco Status: No Alcohol use: none Drug use: none Occupational status: retired Current living situation: Home, With Family Activity Level: Independent ambulation Recent Out of Country Travel Within the Last 8 Weeks: No Exposure or Possible Exposure to Illness During Travel: No - Family History Brother Name: John Age: 44 Family Member Ethnicity: Non- Age at : 44 Cause of : Organ failure Hx Family Cardiac Disorders: No Hx Family Respiratory Disorders: No Hx Family Cancer: No Hx Family GI Disorders: No Hx Family Genitourinary Disorders: No Hx Family Endocrine Disorder: Yes (DM) Hx Family Musculoskeletal Disorders: No Hx Family Neuromuscular Disorders: No Hx Family Neurologic Disorders: No Hx Family HEENT Disorders: No Hx Family Autoimmune Disorders: No Hx Family Reproductive Disorders: No Hx Family Psychosocial Disorders: No Hx Family Medical Disorders: No Infectious Disease-CN:Meds Metoprolol [Lopressor] 25 mg PO DAILY 04/25/16 [History] Gabapentin [Neurontin] 800 mg PO QID 01/10/17 [History] OxyCODONE/APAP 5/325 [Percocet 5/325 MG] 1 each PO Q6HR PRN #28 tablet 03/28/17 [Rx] Insulin ASPART [Novolog Flexpen] 8 unit SQ TID 30 Days insuln.pen 03/31/17 [Rx] Insulin DETEMIR [Levemir] 40 unit SQ BID 30 Days mls 03/31/17 [Rx] Amoxicillin/Clavulanate [Augmentin] 500 mg PO BID 04/22/17 [History] Lactobacillus [Culturelle] 1 each PO BID 04/22/17 [History] Atorvastatin [Lipitor] 10 mg PO HS 04/23/17 [History] Doxycycline 100 mg PO BID 04/23/17 [History] L. Rhamnosus GG/Inulin [Culturelle Capsule] 1 - 2 cap PO BID 04/23/17 [History] 3 Allergy/AdvReac Type Severity Reaction Status Date / Time No Known Allergies Allergy Verified 03/28/17 13:53 All systems: reviewed and no additional remarkable complaints except as stated Exam - Constitutional Vitals: Temp Pulse Resp BP Pulse Ox 98.0 F 74 18 125/72 97 04/23/17 06:33 04/23/17 06:33 04/23/17 06:33 04/23/17 06:33 04/23/17 07:40 General appearance: average body habitus, cooperative, no acute distress - Head Head exam: Present: atraumatic, normal inspection, normocephalic - Eye Eye exam: Present: EOMI, normal appearance, PERRL Pupils: Present: normal accommodation - ENT ENT exam: Present: mucous membranes moist - Neck Neck exam: Present: normal inspection - Respiratory Respiratory exam: Present: CTAB. Absent: rales, respiratory distress, rhonchi, wheezes - Cardiovascular Cardiovascular exam: Present: RRR, +S1, +S2 - GI/Abdominal GI/Abdominal exam: Present: normal bowel sounds, soft. Absent: distended, tenderness - Extremities Exam Extremities exam: Present: normal inspection, tenderness (right hand). Absent: pedal edema Additional comments: Right hand dressing C/D/I. - Neurological Exam Neurological exam: Present: alert, oriented X3, no focal deficits - Psychiatric Psychiatric exam: Present: normal affect, normal mood - Skin Skin exam: Present: dry, intact, normal color, warm Infectious Disease CN: Results - Labs CBC & Chem 7: 04/23/17 06:41 04/23/17 06:41 - VTE Documentation of Mechanical Device: Venous foot pump, device Consult Discharge Plan - Plan Referrals: Lorin Blair CNP [Primary Care Provider] - - Attending Attestation I examined this patient and my medical decision-making was reviewed with the Resident Physician. I agree with the documented findings, disposition and treatment plan as described except to the extent set forth below. This is an addendum to original report dictated by Kelley with CMP. Please refer to [facility] note for full details. Briefly patient is a 46-year-old gentleman with diabetes mellitus type 2 that is uncontrolled and history of coronary artery disease with an IL in the past apparently had trauma to his hand in late October while working on his car. The was penetrating. Patient was seen as an outpatient at one point because of drainage and was given Augmentin. Patient also had an I&D. Exact details does not want known. Patient had cultures done at that time and apparently loop Klebsiella and Prevotella and was given ciprofloxacin for 10 days. Patient continued to have drainage and pain and swelling so eventually in January he was seen in the [place] ER where they cultured and they gave him antibiotics for 10 days. On March 15 patient was seen by Dr. Foote and on the seventh he was admitted for right hand I&D. At that time patient grew Proteus and was treated with Augmentin for 10 days. Patient continued to have symptoms and on 28 March he was readmitted and had a repeat I&D and at that time cultures grew anaerobes. Patient was given Keflex and discharged home. On April 09 patient was evaluated by Dr. Foote in clinic and was switched to clindamycin and Augmentin. Patient continued to have symptoms was evaluated by [facility] on April 16 and she continued oral antibiotics. Patient was evaluated this week by Dr. Foote and he was concerned so he admitted for repeat I&D where he noted abscess pus tendon involvement and not sure if he had any bone involvement. I havent had a chest to talk with Dr. Foote myself. Patient was started on broad-spectrum antibiotics and we were consult at the evaluated the patient and make further recommendations. At this point patient has had total of 4 I&Ds and has had multiple oral course of antibiotics and that has failed. I truly believe at this point patient probably needs IV antibiotics for prolonged duration. Patient is right-handed and this is the right hand is infected. Patient understands that there is risk with antibiotics including kidney issues and diarrhea among other things and drug drug interactions he also understands that he will probably need a PICC line placement. Duration of treatment depends on the clinical picture, culture results, and following inflammatory markers. Patient is aware that he needs adequate glucose control as well. Continue current antibiotics and monitor labs for drug toxicity. Goal vancomycin trough 15.
--- NOTE | 2017-04-23 11:00 | Internal Med Progress Note ---
Date of Encounter: 04/23/17 Time of Encounter: 10:00 - Assessment and plan (1) CAD (coronary artery disease) Current Visit: Yes Status: Acute Assessment and plan: Stable, no angina Qualifiers: Coronary Disease-Associated Artery/Lesion type: unspecified vessel or lesion type [place] vs. transplanted heart: [place] heart Associated angina: without angina Qualified Code(s): I25.10 - Atherosclerotic heart disease of [place] coronary artery without angina pectoris (2) DVT prophylaxis Current Visit: Yes Status: Acute (3) Diabetes mellitus, insulin dependent (IDDM), uncontrolled Current Visit: Yes Status: Acute Assessment and plan: Levemir increased to 45 units subcutaneous twice a day today. Patient states his blood sugars are well controlled at home in the 100 range, however his A1c is 11.2. 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 Patient should be on an CARLOS inhibitor given his diabetes, and can consider starting this upon discharge. Qualifiers: Hypertension type: essential hypertension Qualified Code(s): I10 - Essential (primary) hypertension (5) Infection of right hand Current Visit: Yes Status: Acute (6) Uncontrolled diabetes mellitus Current Visit: No Status: Acute Qualifiers: Diabetes mellitus type: type 2 Diabetes mellitus complication status: without complication Diabetes mellitus terminal supervisor insulin use: with [facility] use Qualified Code(s): E11.65 - Type 2 diabetes mellitus with hyperglycemia; Z79.4 - terminal superintendent (current) use of insulin; Z79.4 - terminal superintendent (current) use of insulin; Z79.4 - [facility] (current) use of insulin; Z79.4 - terminal superintendent (current ) use of insulin (7) CAD (coronary artery disease) Current Visit: No Status: Chronic Qualifiers: Coronary Disease-Associated Artery/Lesion type: bypass graft [place] vs. transplanted heart: [place] heart Associated angina: without angina Qualified Code(s): I25.810 - Atherosclerosis of coronary artery bypass graft(s) without angina pectoris - Time Spent With Patient less than 15 minutes - Subjective Interval history: Mr. Dudley is a 46 year old male with Hx of DM, HTN, CAD s/p CABG, admitted to orthopedic service for right hand injury and infection. Pt has right hand injury caused by hiting metal antwon about 4 months ago. He had several surgery and had infection. He was seen by ID previously. Pt denies chest pain. Has DM and Glu level is poorly controlled. He c/o mild polydipsia and polyuria. No significant body weight change. Patient takes Levemir 40 units twice a day, plus prandial insulin 8 units with every meal, plus sliding scale at home. His sugar level has been well controlled at around 120 level until he had right hand infection. Medical consult was called for uncontrolled diabetes. 04/23: Blood sugars remain elevated. No CP, SOB, No F/C, No N/V/D. - Constitutional Vitals: Temp Pulse Resp BP Pulse Ox 98.0 F 74 18 125/72 97 04/23/17 06:33 04/23/17 06:33 04/23/17 06:33 04/23/17 06:33 04/23/17 07:40 General appearance: Present: A&O X 3, no acute distress, answers questions appropriately - Extremities Exam Extremities exam: Present: warm, radial pulses palpable and symmetrical. Absent : calf tenderness, cyanotic, pedal edema Additional comments: Right hand dressed Internal Medicine: Result - Labs CBC & Chem 7: 04/23/17 06:41 04/23/17 06:41 Labs: Short CBC 04/22/17 04/23/17 Range/Units 22:31 06:41 WBC 9.9 10.5 (4.3-11.1) K/mcL Hgb 14.5 14.4 (12.9-16.9) g/dL Hct 41.6 41.5 (37.5-50.1) % Plt Count 154 153 (140-400) K/mcL Neutrophils # 8.5 8.2 (1.6-8.9) K/mcL BMP 04/22/17 04/23/17 22:31 06:41 Sodium 136 137 Potassium 3.6 4.1 Chloride 101 104 Carbon Dioxide 27 29 BUN 5 L 6 Creatinine 0.67 L 0.64 L Glucose 365 H 309 H Calcium 8.8 8.9 - VTE Documentation of Mechanical Device: Venous foot pump, device Consult Discharge Plan - Plan Referrals: Lorin Blair CNP [Primary Care Provider] -
--- NOTE | 2017-04-23 13:22 | Orthopedics Progress Note ---
Date of Encounter: 04/23/17 Time of Encounter: 12:15 - Assessment and Plan (1) Uncontrolled diabetes mellitus Current Visit: No Status: Acute management per hospitalist - likely contributing to nonhealing hand infection Qualifiers: Diabetes mellitus type: type 2 Diabetes mellitus complication status: without complication Diabetes mellitus jail insulin use: with jail use Qualified Code(s): E11.65 - Type 2 diabetes mellitus with hyperglycemia; Z79.4 - extermination supervisor (current) use of insulin; Z79.4 - extermination supervisor (current) use of insulin; Z79.4 - extermination supervisor (current) use of insulin; Z79.4 - extermination supervisor (current ) use of insulin (2) Infection of right hand Current Visit: Yes Status: Acute POD#1 s/p right hand I&D Incisions healing appropriately, packing removed from 3 areas today with no active drainage. Begin local wound care washing incision with soap/water 3xday and recover with dry gauze and kerlix. OT to work with patient. ROM as tolerated. Awaiting PICC, appreciate ID recommendations - zosyn and vancomycin x 2-6 weeks. wound cultures from most recent surgery are still pending although he has been on antibiotics jail which will likely affect growth. Per Dr. Metzger, plan for 2 more night stay Subjective Principal diagnosis: right hand infection Interval history: Patient doing well today but still significant pain and stiffness in hand. Continued numbness and tingling to fingers. Objective Vital signs: Vital Signs Temp Pulse Resp BP Pulse Ox 04/23/17 11:03 98.0 F 67 18 121/71 97 04/23/17 07:40 97 04/23/17 06:33 98.0 F 74 18 125/72 97 04/23/17 04:05 97.8 F 69 14 108/70 97 04/22/17 23:39 97.7 F 78 16 129/78 99 04/22/17 22:30 97.7 F 74 16 130/71 100 04/22/17 21:50 97.6 F 80 16 151/90 99 04/22/17 21:13 97.6 F 86 16 150/82 100 04/22/17 20:10 97.8 F 76 16 138/82 99 04/22/17 19:30 97.8 F 79 17 130/76 99 04/22/17 18:50 97.5 F L 73 16 130/76 94 04/22/17 18:40 74 16 132/77 94 04/22/17 18:30 79 14 138/89 96 04/22/17 18:20 97.2 F L 76 14 108/66 98 04/22/17 14:57 98.8 F 81 18 105/69 100 Intake and Output 04/22/17 04/23/17 04/23/17 23:59 07:59 15:59 Intake Total 100 / 100 1100 / 1100 480 / 480 Output Total 1999 Balance 90 / 90 -900 / -900 480 / 480 Intake: IV Fluids 200 / 200 Zosyn Premix 3.375 GM/200 ML 3. 200 / 200 375 gm In 200 ml @ 50 mls/hr IVPB Q8HR [facility] Rx#:[id number] Oral 100 / 100 900 / 900 480 / 480 Output: Urine 0 / 0 1999 Estimated Blood Loss Other: Meal Breakfast Percent of Meal Consumed 50% Blood Glucose* 276 299 166 Incision: swollen (Incisions healing appropriately to right palm, packing and sutures in place, no active purulent drainage, ROM of digits restricted, Grossly NV intact, brisk cap refill) - Labs CBC & BMP: 04/23/17 06:41 04/23/17 06:41 Labs: Abnormal lab results ESR 56 mm/hr (0-10) H 04/22/17 22:31 Creatinine 0.64 mg/dL (0.70-1.30) L 04/23/17 06:41 Glucose 309 mg/dL (70-105) H 04/23/17 06:41 POC Glucose 166 (58-89) H 04/23/17 11:04 Hemoglobin A1c 11.2 % (-5.6) H 04/22/17 22:31 C-Reactive Protein 11 mg/L (Less than 10) H 04/22/17 22:31 - VTE Documentation of Mechanical Device: Venous foot pump, device Consult Discharge Plan - Plan Referrals: Lorin Blair, WASTE OIL PUMPER [Primary Care Provider] -
[2017-04-23] MEDS: Vancomycin 1,250 MG in D5% in Water 250 ML IVPB SCH (18:31)
[2017-04-23] MEDS: Ringers Solution, Lactated 1,000 ML IVC SCH (22:01)
[2017-04-24] MEDS: *HR* OxyCODONE Immed Rel 5 MG TABLET PO PRN ×4 (05:12→20:50)
[2017-04-24] MEDS: *HR* Heparin 5,000 UNIT/ML VIAL SQ SCH ×2 (05:12→18:09)
[2017-04-24] MEDS: Vancomycin 1,250 MG in D5% in Water 250 ML IVPB SCH ×2 (05:15→17:29)
[2017-04-24] MEDS: *HR* Morphine 2 MG/ML SYRINGE IVP PRN ×4 (06:08→23:41)
[2017-04-24] MEDS: Lactobacillus 1 EACH CAP.SPRINK PO SCH ×2 (07:37→20:48)
[2017-04-24] MEDS: Aspirin Enteric Coated 81 MG Tablet PO SCH (07:37)
[2017-04-24] MEDS: Insulin LISPRO 300 UNITS/3 ML VIAL SQ SCH ×6 (07:37→20:44)
[2017-04-24] MEDS: Piperacillin/Tazobactam 3.375 GM/200 ML BAG IVPB SCH ×3 (07:38→23:43)
[2017-04-24] MEDS: Insulin DETEMIR 100 UNIT/ML X5UNITS SQ SCH ×2 (09:30→20:48)
--- NOTE | 2017-04-24 09:48 | Orthopedics Progress Note ---
Date of Encounter: 04/24/17 Time of Encounter: 08:15 - Assessment and Plan (1) Uncontrolled diabetes mellitus Current Visit: No Status: Acute Hgb A1C 1.2, glucose finger stick this am was 152 management per hospitalist - likely contributing to nonhealing hand infection. This needs under control better for wound to heal. will need close outpatient follow up for continued management Qualifiers: Diabetes mellitus type: type 2 Diabetes mellitus complication status: without complication Diabetes mellitus penitentiary insulin use: with penitentiary use Qualified Code(s): E11.65 - Type 2 diabetes mellitus with hyperglycemia; Z79.4 - [facility] (current) use of insulin; Z79.4 - joint terminal attack controller (current) use of insulin; Z79.4 - [facility] (current) use of insulin; Z79.4 - joint terminal attack controller (current ) use of insulin (2) Infection of right hand Current Visit: Yes Status: Acute POD#2 s/p right hand I&D Incisions healing appropriately, packing removed yesterday. No active drainage today with minimal drainage on dressings. Continue local wound care washing incision with soap/water 3xday and recover with dry gauze and kerlix. OT to work with patient. ROM as tolerated. Elevate as needed for swelling. Awaiting PICC, appreciate ID recommendations - zosyn and vancomycin x 2-6 weeks. Final wound cultures from most recent surgery are still pending although he has been on antibiotics adjunct faculty for medical terminology which will likely affect growth. Preliminary cx show no growth. Final results to guide outpatient management. Per Dr. Metzger, plan for at least 1 more night stay Subjective Principal diagnosis: POD#2 right hand I&D Interval history: Patient doing well today but still significant pain and stiffness in hand. Continued numbness and tingling to fingers. States dressings have been changed early this morning. No increase in drainage. States therapy has not yet worked with him. Objective Vital signs: Vital Signs Temp Pulse Resp BP Pulse Ox 04/24/17 07:59 99 04/24/17 06:55 98.1 F 69 16 136/82 99 04/23/17 23:39 98.0 F 65 17 131/78 100 04/23/17 20:06 98.3 F 61 17 137/77 100 04/23/17 19:00 100 04/23/17 15:38 98.5 F 66 18 125/72 96 04/23/17 11:03 98.0 F 67 18 121/71 97 Intake and Output 04/23/17 04/24/17 04/24/17 23:59 07:59 15:59 Intake Total 2250 / 2250 450 / 450 Balance 2250 / 2250 450 / 450 Intake: IV Fluids 1450 / 1450 450 / 450 Lactated Ringers 1,000 ML @ 25 1000 / 1000 mls/hr IVC .Q24H [facility] Rx#: [id number] Zosyn Premix 3.375 GM/200 ML 3. 200 / 200 200 / 200 375 gm In 200 ml @ 50 mls/hr IVPB Q8HR [facility] Rx#:[id number] Vancocin 1,250 MG In Dextrose 5 250 / 250 250 / 250 % 250 ML @ 167 mls/hr IVPB Q12H [facility] Rx#:[id number] Oral 800 / 800 Other: # Voids 1 Blood Glucose* 170 152 Incision: healing (Incisions intact healing appropriately, no active drainage, erythema and swelling decreased, flexion of fingers still restricted, brisk cap refill, grossly NV intact) - Labs CBC & BMP: 04/23/17 06:41 04/23/17 06:41 Labs: Abnormal lab results ESR 56 mm/hr (0-10) H 04/22/17 22:31 Creatinine 0.64 mg/dL (0.70-1.30) L 04/23/17 06:41 Glucose 309 mg/dL (70-105) H 04/23/17 06:41 POC Glucose 166 (58-89) H 04/23/17 11:04 Hemoglobin A1c 11.2 % (-5.6) H 04/22/17 22:31 C-Reactive Protein 11 mg/L (Less than 10) H 04/22/17 22:31 - VTE Documentation of Mechanical Device: Intermittent pneumatic compression device Consult Discharge Plan - Plan Referrals: Lorin Blair, INVOICING SPECIALIST [Primary Care Provider] -
--- NOTE | 2017-04-24 09:53 | Internal Med Progress Note ---
Date of Encounter: 04/24/17 Time of Encounter: 09:45 - Assessment and plan (1) CAD (coronary artery disease) Current Visit: Yes Status: Acute Assessment and plan: Stable, no angina Qualifiers: Coronary Disease-Associated Artery/Lesion type: unspecified vessel or lesion type [place] vs. transplanted heart: [place] heart Associated angina: without angina Qualified Code(s): I25.10 - Atherosclerotic heart disease of [place] coronary artery without angina pectoris (2) DVT prophylaxis Current Visit: Yes Status: Acute (3) Diabetes mellitus, insulin dependent (IDDM), uncontrolled Current Visit: Yes Status: Acute Assessment and plan: Levemir increased to 45 units subcutaneous twice a day today. Patient states his blood sugars are well controlled at home in the 100 range, however his A1c is 11.2. 04/24: Blood sugars are variable. Continue to monitor. Last reading was 166. Continue current regimen. 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; E10.65 - Type 1 diabetes mellitus with hyperglycemia; E10.65 - Type 1 diabetes mellitus with hyperglycemia; E10.65 - Type 1 diabetes mellitus with hyperglycemia; E10.65 - Type 1 diabetes mellitus with hyperglycemia (4) HTN (hypertension) Current Visit: Yes Status: Acute Qualifiers: Hypertension type: essential hypertension Qualified Code(s): I10 - Essential (primary) hypertension (5) Infection of right hand Current Visit: Yes Status: Acute (6) Uncontrolled diabetes mellitus Current Visit: No Status: Acute Qualifiers: Diabetes mellitus type: type 2 Diabetes mellitus complication status: without complication Diabetes mellitus detention insulin use: with ferry terminal agent use Qualified Code(s): E11.65 - Type 2 diabetes mellitus with hyperglycemia; Z79.4 - alf (current) use of insulin; Z79.4 - extermination inspector (current) use of insulin; Z79.4 - extermination inspector (current) use of insulin; Z79.4 - alf (current ) use of insulin (7) CAD (coronary artery disease) Current Visit: No Status: Chronic Qualifiers: Coronary Disease-Associated Artery/Lesion type: bypass graft [place] vs. transplanted heart: [place] heart Associated angina: without angina Qualified Code(s): I25.810 - Atherosclerosis of coronary artery bypass graft(s) without angina pectoris - Subjective Interval history: Mr. Dudley is a 46 year old male with Hx of DM, HTN, CAD s/p CABG, admitted to orthopedic service for right hand injury and infection. Pt has right hand injury caused by hiting metal antwon about 4 months ago. He had several surgery and had infection. He was seen by ID previously. Pt denies chest pain. Has DM and Glu level is poorly controlled. He c/o mild polydipsia and polyuria. No significant body weight change. Patient takes Levemir 40 units twice a day, plus prandial insulin 8 units with every meal, plus sliding scale at home. His sugar level has been well controlled at around 120 level until he had right hand infection. Medical consult was called for uncontrolled diabetes. 04/23: Blood sugars remain elevated. No CP, SOB, No F/C, No N/V/D. 04/24: Reports overall he feels well. Blood sugars are variable but do remain elevated, ranging from 160s to 300. - Constitutional Vitals: Temp Pulse Resp BP Pulse Ox 98.1 F 69 16 136/82 99 04/24/17 06:55 04/24/17 06:55 04/24/17 06:55 04/24/17 06:55 04/24/17 07:59 General appearance: Present: A&O X 3, no acute distress, answers questions appropriately - Extremities Exam Extremities exam: Present: warm, radial pulses palpable and symmetrical. Absent : calf tenderness (Right hand dressed), cyanotic, pedal edema Internal Medicine: Result - Labs CBC & Chem 7: 04/23/17 06:41 04/23/17 06:41 - VTE Documentation of Mechanical Device: Intermittent pneumatic compression device Consult Discharge Plan - Plan Referrals: Lorin Blair SOCIAL SCIENCES CHAIR [Primary Care Provider] -
--- NOTE | 2017-04-24 12:57 | Infectious Disease Progress No ---
Date of Encounter: 04/24/17 Time of Encounter: 12:55 - Assessment and Plan (1) Infection of right hand Current Visit: Yes Status: Acute Causative organism unclear. Location: [place] aspect of the right hand. Secondary to non-healing surgical wound, complicated by uncontrolled DM. Previous cultures from February only grew anaerobes, but the patient had been on a prolonged course of PO antibiotics prior to surgery. Before that, Mar 02 - Prevotella and K. pneumoniae; Mar 06 - P. mirabilis. The patient appeared to improve with PO Augmentin and Doxycycline, but continued to have drainage that was concerning for non-resolving infection. Status post debridment 04/22/17. Details of the surgery unknown. No operative note available for review. Will discuss with Dr. Metzger. Intra-op cultures pending. May need to consider fungal and AFB testing. ESR 556, CRP. 11 Continue Zosyn 3.375 grams IV Q8H. Continue Vancomycin IV. Pharmacy to dose. Goal trough ~15. Duration of treatment depends on the clinical picture. Depending on the extent of the infection, the patient may require 2-6 weeks of IV antibiotics. Since he has failed multiple courses of PO antibiotics and multiple surgeries, we will likely need to treat for closer to 6 weeks. Await intra-op cultures. De-escalate antibiotics if/when able. Monitor renal function and for drug toxicity and dose-adjust antibiotics. Pain management, activity restrictions, and wound care per the ortho team. (2) Uncontrolled diabetes mellitus Current Visit: No Status: Acute Hgb A1C 11.2. Uncontrolled. Recommend aggressive glucose monitoring and control to promote wound healing and prevent re-infection. Refer to endocrinology/diabetes management on discharge. Hospitalist consulted to assist with management while inpatient. Qualifiers: Diabetes mellitus type: type 2 Diabetes mellitus complication status: without complication Diabetes mellitus watermelon inspector insulin use: with jail use Qualified Code(s): E11.65 - Type 2 diabetes mellitus with hyperglycemia; Z79.4 - nursing home (current) use of insulin; Z79.4 - nursing home (current) use of insulin; Z79.4 - terminal computer operator (current) use of insulin; Z79.4 - terminal computer operator (current ) use of insulin (3) Non-healing surgical wound Current Visit: No Status: Acute Likely multifactorial: uncontrolled DM + infection. Wound care per the ortho team. Qualifiers: Encounter type: initial encounter Qualified Code(s): T81.89XA - Other complications of procedures, not elsewhere classified, initial encounter (4) HTN (hypertension) Current Visit: No Status: Acute Qualifiers: Hypertension type: essential hypertension Qualified Code(s): I10 - Essential (primary) hypertension (5) CAD (coronary artery disease) Current Visit: No Status: Chronic Qualifiers: Coronary Disease-Associated Artery/Lesion type: bypass graft [place] vs. transplanted heart: [place] heart Associated angina: without angina Qualified Code(s): I25.810 - Atherosclerosis of coronary artery bypass graft(s) without angina pectoris - Subjective Interval history: Patient seen and examined. No acute events noted overnight. Patient resting in bed. Complains of pain at the surgical site. Denies fevers, chills, or rigors. Denies chest pain, shortness of breath, or cough. Denies nausea, vomiting, or diarrhea. Denies abdominal pain, urinary complaints, or appetite changes. Denies oral thrush or skin lesions. Infect Dis PN-Objective Data - Labs CBC & Chem 7: 04/23/17 06:41 04/23/17 06:41 Cultures: Cultures 04/22/17 17:51 Wound Culture - Preliminary Right Hand No growth. Exam - Constitutional Vitals: Temp Pulse Resp BP Pulse Ox 98.3 F 64 17 118/78 98 04/24/17 11:39 04/24/17 11:39 04/24/17 11:39 04/24/17 11:39 04/24/17 11:39 General appearance: average body habitus, cooperative, no acute distress - Head Head exam: Present: atraumatic, normal inspection, normocephalic - Eye Eye exam: Present: EOMI, normal appearance, PERRL Pupils: Present: normal accommodation - ENT ENT exam: Present: mucous membranes moist - Neck Neck exam: Present: normal inspection - Respiratory Respiratory exam: Present: CTAB. Absent: rales, respiratory distress, rhonchi, wheezes - Cardiovascular Cardiovascular exam: Present: RRR, +S1, +S2 - GI/Abdominal GI/Abdominal exam: Present: normal bowel sounds, soft. Absent: distended, tenderness - Extremities Exam Extremities exam: Present: tenderness (right hand). Absent: pedal edema Additional comments: Right hand dressing C/D/I. - Neurological Exam Neurological exam: Present: alert, oriented X3, no focal deficits - Psychiatric Psychiatric exam: Present: normal affect, normal mood - Skin Skin exam: Present: dry, intact, normal color, warm - VTE Documentation of Mechanical Device: Intermittent pneumatic compression device Consult Discharge Plan - Plan Referrals: Lorin Blair CNP [Primary Care Provider] - - Attending Attestation I examined this patient and my medical decision-making was reviewed with the Resident Physician. I agree with the documented findings, disposition and treatment plan as described except to the extent set forth below.
--- NOTE | 2017-04-24 14:55 | Operative Note ---
Date of procedure: 04/22/17 Pre-op diagnosis: Right hand recurrent abscess of LF flexor sheath and prox palmar bursa Post-op diagnosis: same (Right hand recurrent abscess of long finger flexor sheath and the proximal palmar bursa) Procedure: Right-hand incision and drainage of flexor tendon sheath long finger, and also of the proximal palmar bursa at the carpal tunnel level Anesthesia: GETA Surgeon: Konrad Metzger Was there an kennel assistant present: No Estimated blood loss (cc): 10 Tourniquet Time (Minutes): 24 Specimen: Cultures Condition: stable Disposition: PACU Procedure in Detail: Indications: Patient is a 46-year-old gentleman whose head multiple incision and drainages of his right hand including long finger flexor tendon sheath as well as the palmar bursa. The patient was last operated on by myself 3 weeks ago. This is his fifth operation in the past 3 months. He presented in the office yesterday with persisted purulent drainage from his distal palmar incision and also the wound the base of the long finger, over the flexed tendon. His diabetes still remains very uncontrolled. He will be admitted today for repeat incision and drainage, IV antibiotics, and management of his diabetes. Procedure: The patient was brought into the operating room and placed on the OR table in supine position with the affected extremity on a hand table. A sign in was performed. The patient underwent monitored anesthesia care. A tourniquet was placed on the right arm close to the axilla. The patient underwent general anesthesia. The extremity was then prepped and draped in usual sterile fashion. A timeout was performed. The patient had pus draining from the partially open wound at the the distal palm of the hand. Also pus draining from distal and open carpal tunnel incision. Also in the wound with draining pus at the long finger MP flexion crease. The skin at the distal palm of this long finger with very red and angry appearing. The draining wound bluntly spread the hemostat, the purulent fluid expressed was cultured for aerobic and anaerobic. The patient was then given 2 g of Rocephin intravenously. The wounds were copiously with normal saline. The right upper extremity was elevated, exsanguinated with an Tariq wrap, and the tourniquet was raised to pressure of 250 mmHg. The distal palm incision was extended proximally in line with the first webspace. I sharply incised through the deep palmar fascia. The carpal tunnel was also reopened. The deep arch was noted once again, which appeared somewhat sclerosed. Also made a 1.5 cm oblique incision across the right long finger MP flexion crease where it was open already with pus draining. The wounds were copiously irrigated with normal saline and sharp debridement of any granulation and infected tissue. Going into the carpal tunnel, the flexor tendons were bluntly spread and irrigated. The dense infected bursa was resected, freeing up the tendons. The median nerve was dissected out once again. The stump of the flexor digitorum shows tendon to the long finger that had previously ruptured, was sitting at this level. This was dissected out, pulled on and cut allowing it to retract proximally into the wrist. Coming the distal palmar wound, aspirated and irrigated until the flexor tendons where the A1 aamnda was previously released. On exploration under the long finger MP flexion crease, the distal end of the A2 amanda was missing and the flexor digitorum profundus tendon was debrided. There is definitely infiltration of the tendon from infection, not as severe as the FDS that had ruptured. I opened up the MP flexion crease with A2 amanda was also missing the FDP tendon was seen. The tendon was slightly sharply debrided. Then irrigated copious with normal saline between the 3 incisions. The incision at the carpal tunnel level extended further distally in order to further debride the infected bursa, and also dissected free of the flexor tendons. Another short zigzag incision was made, at the long finger distal interphalangeal crease, apex ulna. Skin and subcutaneous tissue flap was elevated, the A5 amanda was incised. The tendon had apparently good condition with no purulence. Using a 14-gauge Angiocath, I irrigated out under the flexor tendon sheath well. The saline was irrigated from distal to proximal from the tip of the finger to the base. The tourniquet was inflated and continued to irrigate the wound out copiously with normal saline. Hemostasis obtained with bipolar cautery. The skin incisions were closed with 2-0, 3-0 nylon mattress and simple sutures. A 5 mm opening was left in the distal palm and also at the MP flexion crease. The skin was mobilized trying to at least cover where the tendon was exposed. A 1 cm opening was left of the carpal tunnel level. All open areas were packed with iodoform packing. The patient was injected with a total of 10 mL of 0.5% Marcaine. Sterile dressings were applied. The patient was extubated and taken to the recovery room in stable condition.
[2017-04-25] MEDS: *HR* Morphine 2 MG/ML SYRINGE IVP PRN ×2 (03:16→21:20)
[2017-04-25 04:46] LABS: Basophils # 0.1 K/mcL (0.0-0.2); Eosinophils # 0.3 K/mcL (0.0-0.6); Eosinophils % 3.3 %; Hematocrit 41.9 % (37.5-50.1); Hemoglobin 14.1 g/dL (12.9-16.9); Immature Granulocytes % 0.6 % (0-4); Lymphocytes # 1.9 K/mcL (0.6-4.6); Lymphocytes % 23.8 %; Mean Corpuscular HGB Conc 33.7 g/dL (31.6-35.5); Mean Corpuscular Hemoglobin 30.7 pg (28.0-33.3); Mean Corpuscular Volume 91.3 fL (83.0-100.0); Mean Platelet Volume 10.5 fL (9.4-12.4); Monocytes # 0.9 K/mcL (0.0-1.3); Monocytes % 10.6 %; Neutrophils # 4.9 K/mcL (1.6-8.9); Platelet Count 152 K/mcL (140-400); Red Blood Count 4.59 M/mcL (4.19-5.50); Red Cell Distribution Width 12.9 % (11.5-14.5); Segmented Neutrophils % 60.7 %
[2017-04-25 04:49] LABS: BUN/Creatinine Ratio 3 (6-26); Blood Urea Nitrogen 3 mg/dL (6-20); C-Reactive Protein 7 mg/L (Less than 10); Calcium 8.7 mg/dL (8.6-10.3); Carbon Dioxide 30 mEq/L (23-29); Chloride 110 mEq/L (98-107); Glucose 65 mg/dL (70-105); Osmolality,Calculated 295 (280-300); Potassium 2.9 mEq/L (3.5-5.1); Sodium 145 mEq/L (136-145); eGFR For African Americans > 60 (> 60); eGFR For Non-African Americans > 60 (> 60)
[2017-04-25] MEDS: *HR* Heparin 5,000 UNIT/ML VIAL SQ SCH ×2 (05:27→17:34)
[2017-04-25] MEDS: Vancomycin 1,250 MG in D5% in Water 250 ML IVPB SCH ×2 (05:27→17:33)
[2017-04-25] MEDS: Insulin LISPRO 300 UNITS/3 ML VIAL SQ SCH ×7 (08:39→21:09)
[2017-04-25] MEDS: Aspirin Enteric Coated 81 MG Tablet PO SCH (08:40)
[2017-04-25] MEDS: Lactobacillus 1 EACH CAP.SPRINK PO SCH ×2 (08:40→21:15)
[2017-04-25] MEDS: *HR* OxyCODONE Immed Rel 5 MG TABLET PO PRN ×3 (08:40→17:48)
[2017-04-25] MEDS: Piperacillin/Tazobactam 3.375 GM/200 ML BAG IVPB SCH (08:43)
--- NOTE | 2017-04-25 09:23 | Internal Med Progress Note ---
Date of Encounter: 04/25/17 Time of Encounter: 09:00 - Assessment and plan (1) CAD (coronary artery disease) Current Visit: Yes Status: Acute Assessment and plan: Stable, no angina Qualifiers: Coronary Disease-Associated Artery/Lesion type: unspecified vessel or lesion type [place] vs. transplanted heart: [place] heart Associated angina: without angina Qualified Code(s): I25.10 - Atherosclerotic heart disease of [place] coronary artery without angina pectoris (2) DVT prophylaxis Current Visit: Yes Status: Acute (3) Diabetes mellitus, insulin dependent (IDDM), uncontrolled Current Visit: Yes Status: Acute Assessment and plan: Levemir increased to 45 units subcutaneous twice a day today. Patient states his blood sugars are well controlled at home in the 100 range, however his A1c is 11.2. 04/24: Blood sugars are variable. Continue to monitor. Last reading was 166. Continue current regimen. 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; E10.65 - Type 1 diabetes mellitus with hyperglycemia; E10.65 - Type 1 diabetes mellitus with hyperglycemia; E10.65 - Type 1 diabetes mellitus with hyperglycemia; E10.65 - Type 1 diabetes mellitus with hyperglycemia (4) HTN (hypertension) Current Visit: Yes Status: Acute Qualifiers: Hypertension type: essential hypertension Qualified Code(s): I10 - Essential (primary) hypertension (5) Infection of right hand Current Visit: Yes Status: Acute (6) Uncontrolled diabetes mellitus Current Visit: No Status: Acute Qualifiers: Diabetes mellitus type: type 2 Diabetes mellitus complication status: without complication Diabetes mellitus care home insulin use: with care home use Qualified Code(s): E11.65 - Type 2 diabetes mellitus with hyperglycemia; Z79.4 - manager intermediate (current) use of insulin; Z79.4 - half-way (current) use of insulin; Z79.4 - manager intermediate (current) use of insulin; Z79.4 - half-way (current ) use of insulin (7) CAD (coronary artery disease) Current Visit: No Status: Chronic Qualifiers: Coronary Disease-Associated Artery/Lesion type: bypass graft [place] vs. transplanted heart: [place] heart Associated angina: without angina Qualified Code(s): I25.810 - Atherosclerosis of coronary artery bypass graft(s) without angina pectoris - Subjective Interval history: Mr. Dudley is a 46 year old male with Hx of DM, HTN, CAD s/p CABG, admitted to orthopedic service for right hand injury and infection. Pt has right hand injury caused by hiting metal antwon about 4 months ago. He had several surgery and had infection. He was seen by ID previously. Pt denies chest pain. Has DM and Glu level is poorly controlled. He c/o mild polydipsia and polyuria. No significant body weight change. Patient takes Levemir 40 units twice a day, plus prandial insulin 8 units with every meal, plus sliding scale at home. His sugar level has been well controlled at around 120 level until he had right hand infection. Medical consult was called for uncontrolled diabetes. 04/23: Blood sugars remain elevated. No CP, SOB, No F/C, No N/V/D. 04/24: Reports overall he feels well. Blood sugars are variable but do remain elevated, ranging from 160s to 300. 04/25: Overall improved glycemic control - Constitutional Vitals: Temp Pulse Resp BP Pulse Ox 98.8 F 65 16 135/74 97 04/25/17 08:17 04/25/17 08:17 04/25/17 08:17 04/25/17 08:17 04/25/17 08:17 General appearance: Present: A&O X 3, no acute distress, answers questions appropriately - Head Head exam: Present: atraumatic, normocephalic - Neck Neck exam general surgery: Present: supple, trachea midline. Absent: lymphadenopathy - Respiratory Respiratory exam: Present: CTAB. Absent: accessory muscle use, rales, rhonchi, wheezes - GI/Abdominal GI/Abdominal exam: Present: normal bowel sounds, soft, no peritoneal signs. Absent: distended, tenderness - Extremities Exam Extremities exam: Present: warm, radial pulses palpable and symmetrical. Absent : calf tenderness (Dressing right hand is clean and dry), cyanotic, pedal edema Internal Medicine: Result - Labs CBC & Chem 7: 04/25/17 03:50 04/25/17 03:50 Labs: Short CBC 04/25/17 Range/Units 03:50 WBC 8.1 (4.3-11.1) K/mcL Hgb 14.1 (12.9-16.9) g/dL Hct 41.9 (37.5-50.1) % Plt Count 152 (140-400) K/mcL Neutrophils # 4.9 (1.6-8.9) K/mcL BMP 04/25/17 03:50 Sodium 145 Potassium 2.9 L Chloride 110 H Carbon Dioxide 30 H BUN 3 L Creatinine 0.87 Glucose 65 L Calcium 8.7 - VTE Documentation of Mechanical Device: Intermittent pneumatic compression device Consult Discharge Plan - Plan Referrals: Lorin Blair CNP [Primary Care Provider] -
[2017-04-25] MEDS: Insulin DETEMIR 100 UNIT/ML X5UNITS SQ SCH ×2 (09:43→21:15)
--- NOTE | 2017-04-25 11:46 | Infectious Disease Progress No ---
Date of Encounter: 04/25/17 Time of Encounter: 11:44 - Assessment and Plan (1) Infection of right hand Status: Acute Causative organism unclear. Location: Palmar aspect of the right hand. Secondary to non-healing surgical wound, complicated by uncontrolled DM. Previous cultures from February only grew anaerobes, but the patient had been on a prolonged course of PO antibiotics prior to surgery. Before that, Mar 02 - Prevotella and K. pneumoniae; Mar 06 - P. mirabilis. The patient appeared to improve with PO Augmentin and Doxycycline, but continued to have drainage that was concerning for non-resolving infection. Status post debridment 04/22/17. Details of the surgery unknown. Operative note reviewed. Intra-op cultures pending. Interpreted as normal skin ananda. Requested that micro run the cultures since it is from a deep abscess obtained in surgery. Gram stain shows GPR. Has to be sent to reference lab for additional ID. ESR 56, CRP. 11 Given that the patient has had gram negatives and anaerobes in the past and the fact that this new bacteria could be Corynebacteria, we will plan on covering the patient with Vancomycin and Ertapenem for now. Once we have final cultures, we will de-escalate based on sensitivities. Discontinue Zosyn. Start Ertapenem 1 gram IV daily. Continue Vancomycin IV. Pharmacy to dose. Goal trough ~15. Duration of treatment depends on the clinical picture. Depending on the extent of the infection, the patient may require 2-6 weeks of IV antibiotics. Since he has failed multiple courses of PO antibiotics and multiple surgeries, we will likely need to treat for closer to 6 weeks. Await intra-op cultures. De-escalate antibiotics if/when able. Monitor renal function and for drug toxicity and dose-adjust antibiotics. Pain management, activity restrictions, and wound care per the ortho team. Okay to consult VAT for PICC line placement. Will need weekly CBC, BUN/Cr, ESR, CRP, and Vanc trough. Will need weekly PICC care per protocol. Follow up with ID 05/12/17 at 0920. (2) Uncontrolled diabetes mellitus Status: Acute Hgb A1C 11.2. Uncontrolled. Recommend aggressive glucose monitoring and control to promote wound healing and prevent re-infection. Refer to endocrinology/diabetes management on discharge. Hospitalist consulted to assist with management while inpatient. Qualifiers: Diabetes mellitus type: type 2 Diabetes mellitus complication status: without complication Diabetes mellitus half-way insulin use: with assembler handbags use Qualified Code(s): E11.65 - Type 2 diabetes mellitus with hyperglycemia; Z79.4 - residential (current) use of insulin; Z79.4 - residential (current) use of insulin; Z79.4 - residential (current) use of insulin; Z79.4 - film projector operator (current ) use of insulin (3) Non-healing surgical wound Status: Acute Likely multifactorial: uncontrolled DM + infection. Wound care per the ortho team. Qualifiers: Encounter type: initial encounter Qualified Code(s): T81.89XA - Other complications of procedures, not elsewhere classified, initial encounter (4) HTN (hypertension) Status: Acute Qualifiers: Hypertension type: essential hypertension Qualified Code(s): I10 - Essential (primary) hypertension (5) CAD (coronary artery disease) Status: Chronic Qualifiers: Coronary Disease-Associated Artery/Lesion type: bypass graft [place] vs. transplanted heart: [place] heart Associated angina: without angina Qualified Code(s): I25.810 - Atherosclerosis of coronary artery bypass graft(s) without angina pectoris - Subjective Interval history: Patient seen and examined. No acute events noted overnight. Patient resting in bed. Complains of pain at the surgical site, but states it is improved today. Denies fevers, chills, or rigors. Denies chest pain, shortness of breath, or cough. Denies nausea, vomiting, or diarrhea. Denies abdominal pain, urinary complaints, or appetite changes. Denies oral thrush or skin lesions. Infect Dis PN-Objective Data - Labs CBC & Chem 7: 04/25/17 03:50 04/26/17 16:39 Labs: Laboratory Results - last 24 hr 04/23/17 04/23/17 04/24/17 16:19 20:02 06:59 WBC RBC Hgb Hct MCV MCH MCHC RDW Plt Count MPV Immature Gran % Seg Neutrophils % Lymphocytes % Monocytes % Eosinophils % Basophils % Neutrophils # Lymphocytes # Monocytes # Eosinophils # Basophils # ESR Sodium Potassium Chloride Carbon Dioxide BUN Creatinine Est GFR ( Amer) Est GFR (Non-Af Amer) BUN/Creatinine Ratio Glucose POC Glucose 254 H 170 H 152 H Calculated Osmolality Calcium C-Reactive Protein Vancomycin Trough 04/24/17 04/24/17 04/24/17 11:43 16:48 19:06 WBC RBC Hgb Hct MCV MCH MCHC RDW Plt Count MPV Immature Gran % Seg Neutrophils % Lymphocytes % Monocytes % Eosinophils % Basophils % Neutrophils # Lymphocytes # Monocytes # Eosinophils # Basophils # ESR Sodium Potassium Chloride Carbon Dioxide BUN Creatinine Est GFR ( Amer) Est GFR (Non-Af Amer) BUN/Creatinine Ratio Glucose POC Glucose 87 139 H 155 H Calculated Osmolality Calcium C-Reactive Protein Vancomycin Trough 04/25/17 04/25/17 04/25/17 03:50 03:50 03:50 WBC 8.1 RBC 4.59 Hgb 14.1 Hct 41.9 MCV 91.3 MCH 30.7 MCHC 33.7 RDW 12.9 Plt Count 152 MPV 10.5 Immature Gran % 0.6 Seg Neutrophils % 60.7 Lymphocytes % 23.8 Monocytes % 10.6 Eosinophils % 3.3 Basophils % 1.0 Neutrophils # 4.9 Lymphocytes # 1.9 Monocytes # 0.9 Eosinophils # 0.3 Basophils # 0.1 ESR 33 H Sodium 145 Potassium 2.9 L Chloride 110 H Carbon Dioxide 30 H BUN 3 L Creatinine 0.87 Est GFR ( Amer) > 60 Est GFR (Non-Af Amer) > 60 BUN/Creatinine Ratio 3 L Glucose 65 L POC Glucose Calculated Osmolality 295 Calcium 8.7 C-Reactive Protein 7 Vancomycin Trough 04/25/17 04/25/17 03:50 08:20 WBC RBC Hgb Hct MCV MCH MCHC RDW Plt Count MPV Immature Gran % Seg Neutrophils % Lymphocytes % Monocytes % Eosinophils % Basophils % Neutrophils # Lymphocytes # Monocytes # Eosinophils # Basophils # ESR Sodium Potassium Chloride Carbon Dioxide BUN Creatinine Est GFR ( Amer) Est GFR (Non-Af Amer) BUN/Creatinine Ratio Glucose POC Glucose 93 H Calculated Osmolality Calcium C-Reactive Protein Vancomycin Trough 13.5 Cultures: Cultures 04/22/17 17:51 Wound Culture - Preliminary Right Hand Gram Positive Rods 04/22/17 17:51 Anaerobic Culture - Preliminary Right Hand At this time, no anaerobic growth is present. The culture will be finalized after 5 days of incubation. Exam - Constitutional Vitals: Temp Pulse Resp BP Pulse Ox 98.1 F 61 16 128/74 98 04/25/17 11:36 04/25/17 11:36 04/25/17 11:36 04/25/17 11:36 04/25/17 11:36 General appearance: average body habitus, cooperative, no acute distress - Head Head exam: Present: atraumatic, normal inspection, normocephalic - Eye Eye exam: Present: EOMI, normal appearance, PERRL Pupils: Present: normal accommodation - ENT ENT exam: Present: mucous membranes moist - Neck Neck exam: Present: normal inspection - Respiratory Respiratory exam: Present: CTAB. Absent: rales, respiratory distress, rhonchi, wheezes - Cardiovascular Cardiovascular exam: Present: RRR, +S1, +S2 - GI/Abdominal GI/Abdominal exam: Present: normal bowel sounds, soft. Absent: distended, tenderness - Extremities Exam Extremities exam: Present: normal inspection, tenderness (right hand). Absent: pedal edema Additional comments: Right hand dressing C/D/I. - Neurological Exam Neurological exam: Present: alert, oriented X3, no focal deficits - Psychiatric Psychiatric exam: Present: normal affect, normal mood - Skin Skin exam: Present: dry, intact, normal color, warm - VTE Documentation of Mechanical Device: Intermittent pneumatic compression device Consult Discharge Plan - Plan Instructions: Diabetes Mellitus Type 2 in Adults (DC), Chronic Hypertension (DC ) Additional Instructions: Wash wound with soap and water 3xday and cover with new dry gauze dressings each time. Continue HEP. Ice and elevate as needed for swelling. Pharmacy to dose antibiotics and PCP to follow per orthopedics for lab monitoring. Referrals: Yanira Moe, PAC [Physician Section Plotter Operator] - 04/28/17 8:30 am (As well as 05/05 at 2:45 PM) Kelley Sanchez CNP [Advanced Practice Nurse] - 05/12/17 9:20 am Lorin Blair CNP [Primary Care Provider] - 05/02/17 9:00 am Prescriptions: OxyCODONE/APAP 5/325 [Percocet 5/325 MG] 1 each PO Q6HR PRN #28 tablet PRN Reason: Pain Vancomycin HCl in Dextrose 5 % [Vancomycin-D5w 1.25 Gram/250Ml] 1.25 gm IV Q12HR #84 mls Ertapenem [INVanz] 1,000 mg IVPB DAILY #42 vial - Attending Attestation I examined this patient and my medical decision-making was reviewed with the Resident Physician. I agree with the documented findings, disposition and treatment plan as described except to the extent set forth below.
--- NOTE | 2017-04-25 13:25 | Orthopedics Progress Note ---
Date of Encounter: 04/25/17 Time of Encounter: 12:40 - Assessment and Plan (1) Uncontrolled diabetes mellitus Current Visit: No Status: Acute Hgb A1C 11.2, glucose finger stick this am was 146 management per hospitalist - likely contributing to nonhealing hand infection. This needs under control better for wound to heal. will need close outpatient follow up for continued management Qualifiers: Diabetes mellitus type: type 2 Diabetes mellitus complication status: without complication Diabetes mellitus local company intermodal truck driver insulin use: with senior living use Qualified Code(s): E11.65 - Type 2 diabetes mellitus with hyperglycemia; Z79.4 - buttermaker continuous churn (current) use of insulin; Z79.4 - buttermaker continuous churn (current) use of insulin; Z79.4 - buttermaker continuous churn (current) use of insulin; Z79.4 - care home (current ) use of insulin (2) Infection of right hand Current Visit: Yes Status: Acute POD#3 s/p right hand I&D WBC 8.1, ESR 33 and CRP 7 both decreased from 2 days ago Incisions healing appropriately. No active drainage today with minimal drainage on dressings. Continue local wound care washing incision with soap/water 3xday and recover with dry gauze and kerlix. OT to work with patient. ROM as tolerated. Elevate as needed for swelling. Awaiting PICC, appreciate ID recommendations - zosyn and vancomycin x 2-6 weeks. Final wound cultures from most recent surgery are still pending but show gram positive rods. Final results to guide outpatient management. Will await ID recommendations for discharge instructions/ outpatient management of abx. Subjective Principal diagnosis: POD#3 right hand I&D Interval history: Patient doing well today with some improvement in swelling and pain. Continued numbness and tingling to fingers. States dressings have been changed early this morning. No increased in drainage. States participating in therapy. Objective Vital signs: Vital Signs Temp Pulse Resp BP Pulse Ox 04/25/17 11:36 98.1 F 61 16 128/74 98 04/25/17 08:17 98.8 F 65 16 135/74 97 04/25/17 00:16 98.1 F 63 14 125/74 97 04/24/17 19:03 96.7 F L 69 16 167/87 99 04/24/17 16:46 98.5 F 63 16 131/75 98 Intake and Output 0104/25/17 04/25/17 23:59 07:59 15:59 Intake Total 500 / 500 440 / 440 Balance 500 / 500 440 / 440 Intake: IV Fluids 450 / 450 200 / 200 Zosyn Premix 3.375 GM/200 ML 3. 200 / 200 200 / 200 375 gm In 200 ml @ 50 mls/hr IVPB Q8HR [facility] Rx#:[id number] Vancocin 1,250 MG In Dextrose 5 250 / 250 % 250 ML @ 167 mls/hr IVPB Q12H [facility] Rx#:[id number] Oral 50 / 50 240 / 240 Other: Meal Breakfast Percent of Meal Consumed 100% # Voids 1 Blood Glucose* 155 146 Incision: draining (Incisions healing appropriately with decreased swelling, minimal erythema and minimal purulent drainage on dressings, no active drainage with palpation. Moderate tenderness to palpation, continued stiffness to all digits especially long finger, brisk cap refill, grossly NV intact) - Labs CBC & BMP: 04/25/17 03:50 04/25/17 03:50 Labs: Abnormal lab results ESR 33 mm/hr (0-10) H 04/25/17 03:50 Potassium 2.9 mEq/L (3.5-5.1) L 04/25/17 03:50 Chloride 110 mEq/L (98-107) H 04/25/17 03:50 Carbon Dioxide 30 mEq/L (23-29) H 04/25/17 03:50 BUN 3 mg/dL (6-20) L 04/25/17 03:50 BUN/Creatinine Ratio 3 (6-26) L 04/25/17 03:50 Glucose 65 mg/dL (70-105) L 04/25/17 03:50 POC Glucose 146 (58-89) H 04/25/17 11:40 Hemoglobin A1c 11.2 % (-5.6) H 04/22/17 22:31 - VTE Documentation of Mechanical Device: Intermittent pneumatic compression device Consult Discharge Plan - Plan Referrals: Kelley Sanchez CNP [Advanced Practice Nurse] - 05/12/17 9:20 am Lorin Blair CNP [Primary Care Provider] -
[2017-04-25] MEDS: Ertapenem 1,000 MG in Water for inj. (sterile) 10 ML IVP SCH (13:55)
--- NOTE | 2017-04-25 15:59 | Discharge Summary ---
Date of Encounter: 04/25/17 Time of Encounter: 12:30 - Discharge Diagnosis (1) Uncontrolled diabetes mellitus Priority: Secondary Status: Acute Qualifiers: Diabetes mellitus type: type 2 Diabetes mellitus complication status: without complication Diabetes mellitus shelter insulin use: with intermodal customer service use Qualified Code(s): E11.65 - Type 2 diabetes mellitus with hyperglycemia; Z79.4 - skilled nursing (current) use of insulin; Z79.4 - skilled nursing (current) use of insulin; Z79.4 - skilled nursing (current) use of insulin; Z79.4 - skilled nursing (current ) use of insulin (2) Infection of right hand Priority: Primary Status: Acute - Discharge Medications Prescriptions: OxyCODONE/APAP 5/325 [Percocet 5/325 MG] 1 each PO Q6HR PRN #28 tablet PRN Reason: Pain Vancomycin HCl in Dextrose 5 % [Vancomycin-D5w 1.25 Gram/250Ml] 1.25 gm IV Q12HR #84 mls Ertapenem [INVanz] 1,000 mg IVPB DAILY #42 vial Home Medications: Metoprolol [Lopressor] 25 mg PO DAILY 04/25/16 [History] Gabapentin [Neurontin] 800 mg PO QID 01/10/17 [History] Insulin ASPART [Novolog Flexpen] 8 unit SQ TID 30 Days insuln.pen 03/31/17 [Rx] Lactobacillus [Culturelle] 1 each PO BID 04/22/17 [History] Atorvastatin [Lipitor] 10 mg PO HS 04/23/17 [History] L. Rhamnosus GG/Inulin [Culturelle Capsule] 1 - 2 cap PO BID 04/23/17 [History] Ertapenem [INVanz] 1,000 mg IVPB DAILY #42 vial 04/25/17 [Rx] Insulin DETEMIR [Levemir] 45 unit SQ BID 30 Days mls 04/25/17 [Rx] OxyCODONE/APAP 5/325 [Percocet 5/325 MG] 1 each PO Q6HR PRN #28 tablet 04/25/17 [Rx] Vancomycin HCl in Dextrose 5 % [Vancomycin-D5w 1.25 Gram/250Ml] 1.25 gm IV Q12HR #84 mls 04/25/17 [Rx] Allergies/Adverse Reactions: 3 Allergy/AdvReac Type Severity Reaction Status Date / Time No Known Allergies Allergy Verified 12/29/17 13:53 Procedures and tests throughout hospitalization: Right-hand incision and drainage of flexor tendon sheath long finger, and also of the proximal palmar bursa at the carpal tunnel level 04/22/17 Labs on day of discharge: Labs from last 24 hours 04/25/17 04/25/17 04/25/17 11:40 08:20 03:50 WBC RBC Hgb Hct MCV MCH MCHC RDW Plt Count MPV Immature Gran % Seg Neutrophils % Lymphocytes % Monocytes % Eosinophils % Basophils % Neutrophils # Lymphocytes # Monocytes # Eosinophils # Basophils # ESR Sodium Potassium Chloride Carbon Dioxide BUN Creatinine Est GFR ( Amer) Est GFR (Non-Af Amer) BUN/Creatinine Ratio Glucose POC Glucose 146 H 93 H Calculated Osmolality Calcium C-Reactive Protein Vancomycin Trough 13.5 04/25/17 04/25/17 04/25/17 03:50 03:50 03:50 WBC 8.1 RBC 4.59 Hgb 14.1 Hct 41.9 MCV 91.3 MCH 30.7 MCHC 33.7 RDW 12.9 Plt Count 152 MPV 10.5 Immature Gran % 0.6 Seg Neutrophils % 60.7 Lymphocytes % 23.8 Monocytes % 10.6 Eosinophils % 3.3 Basophils % 1.0 Neutrophils # 4.9 Lymphocytes # 1.9 Monocytes # 0.9 Eosinophils # 0.3 Basophils # 0.1 ESR 33 H Sodium 145 Potassium 2.9 L Chloride 110 H Carbon Dioxide 30 H BUN 3 L Creatinine 0.87 Est GFR ( Amer) > 60 Est GFR (Non-Af Amer) > 60 BUN/Creatinine Ratio 3 L Glucose 65 L POC Glucose Calculated Osmolality 295 Calcium 8.7 C-Reactive Protein 7 Vancomycin Trough 04/24/17 04/24/17 04/24/17 19:06 16:48 11:43 WBC RBC Hgb Hct MCV MCH MCHC RDW Plt Count MPV Immature Gran % Seg Neutrophils % Lymphocytes % Monocytes % Eosinophils % Basophils % Neutrophils # Lymphocytes # Monocytes # Eosinophils # Basophils # ESR Sodium Potassium Chloride Carbon Dioxide BUN Creatinine Est GFR ( Amer) Est GFR (Non-Af Amer) BUN/Creatinine Ratio Glucose POC Glucose 155 H 139 H 87 Calculated Osmolality Calcium C-Reactive Protein Vancomycin Trough 04/24/17 04/23/17 04/23/17 06:59 20:02 16:19 WBC RBC Hgb Hct MCV MCH MCHC RDW Plt Count MPV Immature Gran % Seg Neutrophils % Lymphocytes % Monocytes % Eosinophils % Basophils % Neutrophils # Lymphocytes # Monocytes # Eosinophils # Basophils # ESR Sodium Potassium Chloride Carbon Dioxide BUN Creatinine Est GFR ( Amer) Est GFR (Non-Af Amer) BUN/Creatinine Ratio Glucose POC Glucose 152 H 170 H 254 H Calculated Osmolality Calcium C-Reactive Protein Vancomycin Trough Preliminary micro results at discharge 04/22/17 17:51 Wound Culture - Preliminary Right Hand Gram Positive Rods 04/22/17 17:51 Anaerobic Culture - Preliminary Right Hand At this time, no anaerobic growth is present. The culture will be finalized after 5 days of incubation. Date of admission: 04/22/17 19:00 Primary care physician: Lorin Blair, Consults: 04/22/17 19:15 Consult to Hospitalist [CONS] Routine Consulting Provider: Hospitalist Bhavna Reason for Consult: uncontrolled DM Call Completed: No Consult to Infectious Diseases [CONS] Routine Consulting Provider: Infectious Disease Serena Reason for Consult: hand abscess Call Completed: No Consult to PICC team [Consult to Invasive Line Access Team] [CONS] Routine Reason for Consult: Chronic infection requiring shelter abx Line Type: PICC PICC line indications: skilled nursing Med/Antibiotic 04/23/17 13:30 Consult to Applications Engineering Manager [CONS] Routine Reason for SW Consult: Discharge planning. IV antibioitcs/ PICC Line 04/23/17 13:31 Consult to Occupational Therapy [CONS] Routine Comment: Evaluate, develop and implement POC Reason for Consult: Right hand infection, significant stiffness Discharging clinician: Konrad Metzger Anticipated date of discharge: 04/25/17 - Patient Status Disposition: Home, Self-Care Condition: Fair Functional capacity at discharge: independent ambulation Overall status at discharge: patient is progressing back to baseline - Discharge Instructions Instructions: Diabetes Mellitus Type 2 in Adults (DC), Chronic Hypertension (DC ) Follow Up With: Kelley Sanchez CNP [Advanced Practice Nurse] - 05/12/17 9:20 am Lorin Blair CNP [Primary Care Provider] - 05/02/17 9:00 am Additional Instructions: Wash wound with soap and water 3xday and cover with new dry gauze dressings each time. Continue HEP. Ice and elevate as needed for swelling. - Diet and Activity Activity: increase activity as tolerated Diet: advance to your usual diet - Hospital Course Hospital course: Mr. Dudley is a 46 year old male admitted for right hand infection for a repeat I&D performed on 04/22/17. He has uncontrolled DM which is contributing to his poor wound healing. Hospitalist was consulted and created plan for control. Patient set up with outpatient follow up with PCP for further management. ID also consulted for antibiotic guidance. Current cultures show gram positive rods but have been sent out for further testing. Will discharge on vancomycin and ertapenem through PICC line. - Time Spent with Patient Total time spent providing and/or coordinating discharge services: - VTE Documentation of Mechanical Device: Intermittent pneumatic compression device Pending Studies Final culture results - Attending Attestation Case and plan of care discussed with supervising physician who was available for all aspects of care.
[2017-04-25] MEDS: Ringers Solution, Lactated 1,000 ML IVC SCH (17:38)
[2017-04-26] MEDS: *HR* Morphine 2 MG/ML SYRINGE IVP PRN ×2 (01:00→05:26)
[2017-04-26] MEDS: *HR* Heparin 5,000 UNIT/ML VIAL SQ SCH ×2 (05:26→17:35)
[2017-04-26] MEDS: Vancomycin 1,250 MG in D5% in Water 250 ML IVPB SCH ×2 (05:27→17:36)
[2017-04-26] MEDS: *HR* OxyCODONE Immed Rel 5 MG TABLET PO PRN ×2 (07:07→15:16)
[2017-04-26] MEDS: Insulin LISPRO 300 UNITS/3 ML VIAL SQ SCH ×6 (07:10→16:47)
[2017-04-26] MEDS: Insulin DETEMIR 100 UNIT/ML X5UNITS SQ SCH (08:36)
[2017-04-26] MEDS: Ertapenem 1,000 MG in Water for inj. (sterile) 10 ML IVP SCH (08:37)
[2017-04-26] MEDS: Aspirin Enteric Coated 81 MG Tablet PO SCH (08:38)
[2017-04-26] MEDS: Lactobacillus 1 EACH CAP.SPRINK PO SCH (08:38)
--- NOTE | 2017-04-26 13:38 | Orthopedics Progress Note ---
Date of Encounter: 04/26/17 Time of Encounter: 13:37 Subjective Principal diagnosis: POD#4 right hand I&D Interval history: Patient doing well with no complaints. Right hand and postoperative dressings without any drainage. The patient is eager to go and his incision therapy as set up. Anticipate discharged tonight at 5 PM after his next dose. Objective Vital signs: Vital Signs Temp Pulse Resp BP Pulse Ox 04/26/17 11:51 97.7 F 67 16 170/83 97 04/26/17 06:50 98.0 F 63 15 128/76 97 04/26/17 00:20 98.0 F 69 16 132/80 98 04/25/17 19:45 98.4 F 61 15 135/81 99 04/25/17 17:24 98.1 F 58 17 161/88 99 Intake and Output 04/25/17 04/26/17 04/26/17 23:59 07:59 15:59 Intake Total 250 / 250 600 / 600 380 / 380 Balance 250 / 250 600 / 600 380 / 380 Intake: IV Fluids 250 / 250 260 / 260 INVanz 1,000 MG In Water for 10 inj. (sterile) 10 ML @ 200 mls/ hr IVP DAILY [facility] Rx#:[id number] Vancocin 1,250 MG In Dextrose 5 250 / 250 250 / 250 % 250 ML @ 167 mls/hr IVPB Q12H [facility] Rx#:[id number] Oral 600 / 600 120 / 120 Other: Meal Breakfast Percent of Meal Consumed 90% # Voids 2 Blood Glucose* 112 94 83 - Labs CBC & BMP: 04/25/17 03:50 04/25/17 03:50 Labs: Abnormal lab results ESR 33 mm/hr (0-10) H 04/25/17 03:50 Potassium 2.9 mEq/L (3.5-5.1) L 04/25/17 03:50 Chloride 110 mEq/L (98-107) H 04/25/17 03:50 Carbon Dioxide 30 mEq/L (23-29) H 04/25/17 03:50 BUN 3 mg/dL (6-20) L 04/25/17 03:50 BUN/Creatinine Ratio 3 (6-26) L 04/25/17 03:50 Glucose 65 mg/dL (70-105) L 04/25/17 03:50 POC Glucose 112 (58-89) H 04/25/17 20:49 Hemoglobin A1c 11.2 % (-5.6) H 04/22/17 22:31 - VTE Documentation of Mechanical Device: Intermittent pneumatic compression device Consult Discharge Plan - Plan Instructions: Diabetes Mellitus Type 2 in Adults (DC), Chronic Hypertension (DC ) Additional Instructions: Wash wound with soap and water 3xday and cover with new dry gauze dressings each time. Continue HEP. Ice and elevate as needed for swelling. Referrals: Yanira oMe, PAC [Physician Artificial Fly Tier] - 04/28/17 8:30 am (As well as 05/05 at 2:45 PM) Kelley Sanchez TALKING [employer]KS LIBRARY CLERK [Advanced Practice Nurse] - 05/12/17 9:20 am Lorin Blair CNP [Primary Care Provider] - 05/02/17 9:00 am Prescriptions: Ertapenem [INVanz] 1,000 mg IVPB DAILY #42 vial OxyCODONE/APAP 5/325 [Percocet 5/325 MG] 1 each PO Q6HR PRN #28 tablet PRN Reason: Pain Vancomycin HCl in Dextrose 5 % [Vancomycin-D5w 1.25 Gram/250Ml] 1.25 gm IV Q12HR #84 mls
[2017-04-26 17:07] VITALS: BP 164/82
[2017-04-26 17:09] LABS: BUN/Creatinine Ratio 14 (6-26); Blood Urea Nitrogen 16 mg/dL (6-20); eGFR For African Americans > 60 (> 60); eGFR For Non-African Americans > 60 (> 60)
[2017-04-26] MEDS ORDERED: Aminoglycoside Consult 1 EACH MC ONE (19:35)
== END 2017-04-26 19:36 | disposition home or self-care (01) | DRG 581 ==
LOC: SAMDAY 14:28 → 3NENU 19:00
PROVIDERS: ADMIT Orthopaedic Surgery Hand Surgery; ATTEND Orthopaedic Surgery Hand Surgery

== ENCOUNTER 2019-02-16 04:26 | Observation (INO) ==
[2019-02-16] MEDS ORDERED: Ondansetron 4 MG/2 ML VIAL IVP PRN (05:42)
[2019-02-16] MEDS ORDERED: Naloxone 0.4 MG/ML INJ IVP PRN (05:42)
[2019-02-16] MEDS ORDERED: *HR* Heparin 5,000 UNIT/ML VIAL IVP ONE (05:42)
[2019-02-16] MEDS ORDERED: *HR* Heparin 5,000 UNIT/ML VIAL IVP PRN ×2 (05:42)
[2019-02-16] MEDS ORDERED: Dextrose Gel 15 GM/37.5 ML TUBE PO PRN ×2 (05:45)
[2019-02-16] MEDS ORDERED: *HR* Dextrose 50 % in Water (Syg) 50 ML SYRINGE IVP PRN (05:45)
[2019-02-16] MEDS ORDERED: Heparin 25,000 UNIT/250 ML D5W 25,000 UNIT/250 ML IV.SOLN IVC SCH (05:45)
[2019-02-16] MEDS ORDERED: Isovue-370 500 ML BOTTLE IVP ONE (05:45)
[2019-02-16] MEDS ORDERED: D5% in Water 1,000 ML IVC PRN (05:45)
[2019-02-16 06:28] LABS: Basophils # 0.1 K/mcL (0.0-0.2); Basophils % 1.1 %; Eosinophils # 0.3 K/mcL (0.0-0.6); Eosinophils % 4.2 %; Hematocrit 38.9 % (37.5-50.1); Hemoglobin 13.7 g/dL (12.9-16.9); Immature Granulocytes % 0.9 % (0-4); Lymphocytes # 2.3 K/mcL (0.6-4.6); Lymphocytes % 28.8 %; Mean Corpuscular HGB Conc 35.2 g/dL (31.6-35.5); Mean Corpuscular Hemoglobin 30.2 pg (28.0-33.3); Mean Corpuscular Volume 85.7 fL (83.0-100.0); Mean Platelet Volume 10.4 fL (9.4-12.4); Monocytes # 0.7 K/mcL (0.0-1.3); Monocytes % 8.4 %; Neutrophils # 4.6 K/mcL (1.6-8.9); Platelet Count 205 K/mcL (140-400); Prothrombin Time 11.2 Seconds (9.4-12.1); Red Blood Count 4.54 M/mcL (4.19-5.50); Segmented Neutrophils % 56.6 %; White Blood Count 8.1 K/mcL (4.3-11.1)
[2019-02-16 06:45] LABS: Alanine Aminotransferase 8 Units/L (7-52); Albumin 3.3 g/dL (3.5-5.7); Albumin/Globulin Ratio 1.4 (1.1-2.2); Alkaline Phosphatase 91 Units/L (34-104); Aspartate Amino Transferase 12 Units/L (13-39); BUN/Creatinine Ratio 8 (6-26); Bilirubin,Total 0.5 mg/dL (0.3-1.0); Blood Urea Nitrogen 7 mg/dL (6-20); Calcium 8.7 mg/dL (8.6-10.3); Carbon Dioxide 27 mEq/L (23-29); Chloride 104 mEq/L (98-107); Globulin 2.4 g/dL (2.4-3.5); Glucose 275 mg/dL (70-105); Magnesium 1.8 mg/dL (1.6-2.6); Osmolality,Calculated 294 (280-300); Phosphorous 4.4 mg/dL (2.7-4.5); Potassium 3.2 mEq/L (3.5-5.1); Sodium 138 mEq/L (136-145); Total Protein 5.7 g/dL (6.4-8.9); eGFR For African Americans > 60 (> 60); eGFR For Non-African Americans > 60 (> 60)
[2019-02-16] MEDS: Insulin LISPRO 300 UNITS/3 ML VIAL SQ SCH ×3 (08:01→16:54)
[2019-02-16 08:42] LABS: Estimated Average Glucose 263 mg/dl
[2019-02-16 16:53] VITALS: BP 114/75
[2019-02-16 17:06] LABS: Bilirubin,Urine Negative (Negative); Blood,Urine Negative (Negative); Clarity,Urine Clear (Clear); Color,Urine Yellow (Yellow); Glucose,Urine (UA) >=1000 mg/dL (Normal); Ketones,Urine Negative (Negative); Leukocyte Esterase,Urine Negative (Negative); Nitrite,Urine Negative (Negative); PH,Urine 5.5 pH Units (5.0-8.0); Protein,Urine >=300 mg/dL (Neg-Trace); Specific Gravity,Urine > 1.030 (1.010-1.025); Urobilinogen,Urine Normal (Normal)
[2019-02-16 17:09] LABS: Bacteria,Urine None Seen per hpf (None-Few); Squamous Epithelial Cell,Urine Many per lpf (None-Few)
[2019-02-16 17:29] LABS: Hyaline Casts,Urine Few per lpf (None-Few)
== END 2019-02-16 18:35 | disposition home or self-care (01) ==
LOC: CDU → 3BNU 12:49
PROVIDERS: ADMIT Family Medicine; ATTEND Family Medicine